=== PATIENT | female | born 1930 | race Caucasian/White ===

== ENCOUNTER → 2016-10-09 | Outpatient (CLI) | payer MEDICARE, OTHER ==
[~2016-10-09] MED LIST: ACET-62 PO; ALEN70TA48; ASPI-557 PO; CALC-969 PO; FISH1CAP59 PO; GLIM2TAB3 PO; INSU100I4 SQ; LEVO75TA10; MV-M1TAB38 PO; OMEP20CA10; SAXA5TAB; SERT50TA12; SIMV40TA5 PO
== END ==
LOC: WC.BC 10:35
DX: Z12.31 Encounter for screening mammogram for malignant neoplasm of breast (principal)
CPT/HCPCS: 77063; G0202

== ENCOUNTER → 2017-06-14 19:00 | Observation (INO) ==
--- OUTSIDE RECORDS SUMMARY | 2017-06-13 14:24 | External Medical Summary | Referral Summary ---
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 Discharge Diagnosis: Back pain Discharge Disposition: 01-Home or Self Care Attending Physician: Ayana Melo MD Admitting Physician: Ayana Melo MD Referring Physician: Dorian Fournier APRN Vital Signs Most recent to oldest [Reference Range]: 1 Peripheral Pulse Rate [60-100 bpm] 56 bpm *LOW* (06/12/16 2:16 PM) Blood Pressure [90-140/60-90 mmHg] 122/56 mmHg (06/12/16 2:16 PM) Problem List Condition Effective Dates Status Health Status Informant Anemia(Confirmed) Resolved Angina(Confirmed) Resolved Anxiety(Confirmed) Resolved Chronic renal failure syndrome Active (disorder)(Confirmed) Generalized osteoarthritis Active (disorder)(Confirmed) Depression(Confirmed) Resolved Diabetes(Confirmed) Resolved Diabetic renal disease Active (disorder)(Confirmed) Essential hypertension Active (disorder)(Confirmed) Hearing loss(Confirmed) Active Hyperlipidemia(Confirmed) Resolved Hypertension(Confirmed) Resolved Hypothyroidism(Confirmed) Resolved Hypothyroidism (disorder)(Confirmed) Active Renal disease(Confirmed) Active Kidney stones(Confirmed) Resolved Osteoarthritis(Confirmed) Resolved Urge incontinence of urine Active (finding)(Confirmed) Allergies, Adverse Reactions, Alerts Substance Reaction Severity Status citalopram Active codeine Active sulfa drugs Active sulfanilamide topical Active Medications Aspir 81 1 tabs, Oral, Daily, 0 Refill(s) Start Date: 12/21/13 Status: OrderedCalcium 600+D 1 tabs, Oral, Daily, 0 Refill(s) Start Date: 02/16/14 Status: OrderedFish Oil 1 tabs, Oral, Daily, 0 Refill(s) Start Date: 12/21/13 Status: OrderedFosamax 70 mg oral tablet 70 mg 1 tabs, Oral, qWeek, # 13 tabs, 3 Refill(s), Pharmacy: [facility] # [id number], 1 tabs Oral qWeek Start Date: 03/14/15 Status: OrderedGentle Laxative 5 mg oral delayed release tablet mg tabs, Oral, Daily, mix with a glass a water, 0 Refill(s) Start Date: 11/09/14 Status: Orderedglimepiride 2 mg oral tablet 2 mg 1 tabs, Oral, BID, take 2 in am and 1 in pm, # 180 tabs, 2 Refill(s), Pharmacy: [facility] #[id number], PLEASE NOTE PT. IS TO TAKE TABLET BID., 1 tabs Oral BID Start Date: 09/13/14 Status: Orderedglucose 4 tabs, Oral, Once, PRN, 0 Refill(s) Start Date: 11/09/14 Status: OrderedLevemir 100 units/mL subcutaneous solution 3 units, SubCutaneous, Daily, 0 Refill(s) Start Date: 12/21/13 Status: OrderedOcuvite 1 tabs, Oral, Daily, 0 Refill(s) Start Date: 12/21/13 Status: Orderedomeprazole 20 mg oral delayed release capsule See Instructions, TAKE ONE CAPSULE BY MOUTH DAILY, # 90 caps, eRx: [facility] #[id number], TAKE ONE CAPSULE BY MOUTH DAILY Start Date: 03/12/16 Status: OrderedOnglyza 5 mg oral tablet See Instructions, TAKE ONE TABLET BY MOUTH DAILY, # 90 tabs, eRx: [facility] #[id number], TAKE ONETABLET BY MOUTH DAILY Start Date: 05/07/16 Status: Orderedsertraline 50 mg oral tablet See Instructions, TAKE ONE TABLET BY MOUTH DAILY, # 30 tabs, 3 Refill(s), eRx: [facility] #[id number], TAKE ONE TABLET BY MOUTH DAILY Start Date: 04/02/16 Status: Orderedsimvastatin 40 mg oral tablet See Instructions, TAKE ONE-HALF TABLET BY MOUTH DAILY - NEEDS LABS DONE., # 45 tabs, 3 Refill(s), eRx: [facility] #[id number], TAKE ONE-HALF TABLET BY MOUTH DAILY - NEEDS LABS DONE. Start Date: 02/20/16 Status: OrderedSynthroid 75 mcg (0.075 mg) oral tablet See Instructions, TAKE ONE TABLET BY MOUTH EVERY DAY, # 90 tabs, eRx: [facility] #[id number], TAKEONE TABLET BY MOUTH EVERY DAY Start Date: 06/09/15 Status: OrderedTylenol Caplet 325 mg oral tablet 1 tabs, Oral, q4hr, as needed for pain, 0 Refill(s) Start Date: 12/21/13 Status: OrderedVitamin C 500 mg, Oral, Daily, 0 Refill(s) Start Date: 12/28/13 Status: Ordered Results No data available for this section Immunizations Given and Recorded Vaccine Date Status Refusal Reason tetanus/diphth/pertuss (Tdap) adult/adol 01/04/04 Recorded influenza virus vaccine, inactivated 03/20/16 Given influenza virus vaccine, live 03/16/13 Given influenza virus vaccine, live 03/06/12 Given tetanus-diphth toxoids (Td) adult/adol 01/04/04 Given zoster vaccine live 07/15/08 Given Procedures Procedure Date Related Diagnosis Body Site Mammogram 09/07/15 Bone densimetry normal 07/27/14 Vaginal Pap smear 01/04/04 Colonoscopy 04/10/01 H/O tubal ligation 1964 in childbirth S/P wrist surgery Social History Social History Type Response Smoking Status Never smoker Assessment and Plan No data available for this section
--- OUTSIDE RECORDS SUMMARY | 2017-06-13 14:24 | External Medical Summary | Referral Summary ---
:1930 Author Organization [facility] Address [address] [place] [address] [place] [phone] Care Team Providers Name Role Phone Jessica Boone Primary Care Physician Encounter VC Date(s): 11/09/14 - 11/09/14 [facility] [address] [place] [address] [place] [phone]- Discharge Diagnosis: Renal disease Discharge Diagnosis: Dyslipidemia Discharge Diagnosis: Chest pain Discharge Diagnosis: Diabetes Discharge Diagnosis: Hypertension Discharge Disposition: 01-Home or Self Care Attending Physician: Easton Wilson MD Admitting Physician: Easton Wilson MD Referring Physician: Karen Carrington MD Vital Signs Most recent to oldest [Reference Range]: 1 Peripheral Pulse Rate [60-100 bpm] 84 bpm (11/09/14 9:00 AM) Blood Pressure [90-140/60-90 mmHg] 102/68 mmHg (11/09/14 9:00 AM) Problem List Condition Effective Dates Status Health [...] Daily, 0 Refill(s) Start Date: 12/21/13 Status: Orderedfolic acid 1 mg oral tablet 1 tabs, Oral, Daily, # 30 tabs, 5 Refill(s), Pharmacy: [facility] #[id number] , 1 tabs Oral Daily Start Date: 01/26/14 Status: OrderedFosamax 70 mg oral tablet 70 mg 1 tabs, Oral, qWeek, # 13 tabs, 3 Refill(s), Pharmacy: [facility] # [id number], 1 tabs Oral qWeek Start Date: 03/14/15 Status: OrderedGentle Laxative 5 mg oral delayed release tablet mg tabs, Oral, Daily, mix with a glass a water, 0 Refill(s) Start Date: 11/09/14 Status: Orderedglimepiride 2 mg oral tablet 1 tabs, Oral, BID, # 180 tabs, 2 Refill(s), Pharmacy: [facility] #[id number], PLEASE NOTE PT. IS TO TAKE TABLET [...] See Instructions, TAKE ONE CAPSULE BY MOUTH ONCE A DAY, # 90 caps, 2 Refill(s), Pharmacy: [facility] #[id number], TAKE ONE CAPSULE BY MOUTH ONCE A DAY Start Date: 09/13/14 Status: OrderedOnglyza 5 mg oral tablet See Instructions, TAKE ONE TABLET BY MOUTH EVERY DAY, # 90 tabs, 2 Refill(s), Pharmacy: [facility] #[id number], TAKE ONE TABLET BY MOUTH EVERY DAY Start Date: 09/13/14 Status: Orderedsertraline 25 mg oral tablet See Instructions, TAKE ONE TABLET BY MOUTH EVERY DAY, # 90 tabs, 1 Refill(s), eRx: [facility] #[id number], TAKE ONE TABLET BY MOUTH EVERY DAY Start Date: 03/16/15 Status: OrderedSynthroid 75 mcg (0.075 mg) oral tablet See Instructions, TAKE ONE TABLET BY MOUTH EVERY DAY, # 90 tabs, 1 Refill(s), eRx: [facility] #[id number], TAKE ONE TABLET BY MOUTH EVERY DAY Start Date: 12/10/14 Status: OrderedTylenol Caplet 325 mg oral tablet 1 tabs, Oral, q4hr, as needed for pain, 0 Refill(s) Start Date: 12/21/13 Status: OrderedVitamin C 500 mg, Oral, Daily, 0 Refill(s) Start Date: 12/28/13 Status: OrderedZocor 40 mg oral tablet See Instructions, TAKE ONE-HALF TABLET BY MOUTH EVERY DAY, # 45 tabs, 2 Refill(s ), Pharmacy: [facility] #[id number], TAKE ONE-HALF TABLET BY MOUTH EVERY DAY Start Date: 09/13/14 Status: Ordered Results No data available for this section Immunizations Vaccine Date Refusal Reason tetanus/diphth/pertuss (Tdap) adult/adol 01/04/04 influenza virus vaccine, live 03/16/13 influenza virus vaccine, live 03/06/12 tetanus-diphth toxoids (Td) adult/adol 01/04/04 zoster vaccine live 07/15/08 Procedures Procedure Date Related Diagnosis Body Site Colonoscopy 2004 H/O tubal ligation 1964 in childbirth S/P wrist surgery Social History Social History Type Response Smoking Status Never smoker Assessment and Plan Extracted from: Title: Ambulatory Patient Education Author: Easton Wilson MD Date: 11/09/14 Family Medicine Coronary Artery Disease, Risk Factors Research has shown that the risk of developing coronary artery disease (CAD) and having a heart attack increases with each factor you have. RISK FACTORS YOU CANNOT CHANGE Your age. Your risk goes up as you get older. Most heart attacks happen to people over the age of 65. Gender. Men have a greater risk of heart attack than women, and they have attacks earlier in life. However, women are more likely to from a heart attack. Heredity. Children of parents with heart disease are more likely to develop it themselves. Race. Americans and other ethnic groups have a higher risk, possibly because of high blood pressure, a tendency toward obesity, and diabetes. Your family. Most people with a strong family history of heart disease have one or more other risk factors. RISK FACTORS YOU CAN CHANGE Exposure to tobacco smoke. Even secondhand smoke greatly increases the risk for heart disease. High blood cholesterol may be lowered with changes in diet, activity, and medicines. High blood pressure makes the heart work harder. This causes the heart muscles to become thick and, eventually, weaker. It also increases your risk of stroke, heart attack, and kidney or heart failure. Physical inactivity is a risk factor for CAD. Regular physical activity helps prevent heart and blood vessel disease. Exercise helps control blood cholesterol, diabetes, obesity, and it may help lower blood pressure in some people. Excess body fat, especially belly fat, increases the risk of heart disease and stroke even if there are no other risk factors. Excess weight increases the heart's workload and raises blood pressure and blood cholesterol. Diabetes seriously increases your risk of developing CAD. If you have diabetes, you should work with your caregiver to manage it and control other risk factors. OTHER RISK FACTORS FOR CAD How you respond to stress. Drinking too much alcohol may raise blood pressure, cause heart failure, and lead to stroke. Total cholesterol greater than 200 milligrams. HDL (good) cholesterol less than 40 milligrams. HDL helps keep cholesterol from building up in the toro of the arteries. PREVENTING CAD Maintain a healthy weight. Exercise or do physical activity. Eat a heart-healthy diet low in fat and salt and high in fiber. Control your blood pressure to keep it below 120 over 80. Keep your cholesterol at a level that lowers your risk. Manage diabetes if you have it. Stop smoking. Learn how to manage stress. HEART SMART SUBSTITUTIONS Instead of whole or 2% milk and cream, use skim milk. Instead of fried foods, eat baked, steamed, boiled, broiled, or microwaved foods. Instead of lard, butter, palm and coconut oils, cook with unsaturated vegetable oils, such as corn, olive, canola, safflower, sesame, soybean, sunflower, or peanut. Instead of fatty cuts of meat, eat lean cuts of meat or cut off the fatty parts. Instead of 1 whole egg in recipes, use 2 egg whites. Instead of sauces, butter, and salt, season vegetables with herbs and spices. Instead of regular hard and processed cheeses, eat low-fat, low-sodium cheeses. Instead of salted potato chips, choose low-fat, unsalted tortilla and potato chips and unsalted pretzels and popcorn. Instead of sour cream and mayonnaise, use plain low-fat yogurt, low-fat cottage cheese, or low-fat or "light" sour cream. FOR MORE INFORMATION National Heart Lung and Blood [place]: www.nhlbi.nih.gov/health/hearttruth [place] [employer]: www.heart.org/HEARTORG Document Released: 08/09/2004 Document Revised: 08/11/2012 Document Reviewed: 08/04/2008 ExitCare Patient Information 2014 [facility]. No follow up information was provided. Extracted from: Title: Office Visit Note Author: Easton Wilson MD Date: 11/09/14 Assessment/Plan 1.Chest pain Chronic chest pain, likely musculoskeletal, with pleuritic component in the past.No recent sxs. If CP worsen in frequency, intensity or change in character, patient will contact me. 2.Dyslipidemia Encouraged healthy eating. Discussed consistent exercise , milly to boost HDL. Cont zocor for now. 3.Hypertension Blood pressure on the low side of normal. Encouraged drinking 60oz water per day. Low salt diet encouraged 4.Renal disease Followed by Dr. Wilder. 5.Diabetes Managed by Dr. Zamarripa. Encouraged exercise and healthy eating. Referrals to Other Providers Referred by: Easton Wilson MD
--- OUTSIDE RECORDS SUMMARY | 2017-06-13 14:24 | External Medical Summary | Referral Summary ---
:1930 Author Organization [facility] Address [address] [place] [address] [place] [phone] Care Team Providers Name Role Phone Jessica Boone Primary Care Physician Encounter VC Date(s): 11/09/14 - 11/09/14 [facility] [address] [place] [address] [place] [phone]- Discharge Diagnosis: Renal disease Discharge Diagnosis: Dyslipidemia [...] Daily, # 30 tabs, 5 Refill(s), Pharmacy: [facility] #[id number] , 1 tabs Oral Daily Start Date: 01/26/14 Status: OrderedFosamax 70 mg oral tablet 70 mg 1 tabs, Oral, qWeek, # 13 tabs, 3 Refill(s), Pharmacy: [facility] # [id number], 1 tabs Oral qWeek Start Date: 03/14/15 Status: OrderedGentle Laxative 5 mg oral delayed release tablet mg tabs, Oral, Daily, mix with a glass a water, 0 Refill(s) Start Date: 11/09/14 Status: Orderedglimepiride 2 mg oral tablet 1 tabs, Oral, BID, # 180 tabs, 2 Refill(s), Pharmacy: [facility] #[id number], PLEASE NOTE PT. IS TO TAKE TABLET [...] DAY, # 90 caps, 2 Refill(s), Pharmacy: [facility] #[id number], TAKE ONE CAPSULE BY MOUTH ONCE A DAY Start Date: 09/13/14 Status: OrderedOnglyza 5 mg oral tablet See Instructions, TAKE ONE TABLET BY MOUTH EVERY DAY, # 90 tabs, 2 Refill(s), Pharmacy: [facility] #[id number], TAKE ONE TABLET BY MOUTH EVERY DAY Start Date: 09/13/14 Status: Orderedsertraline 25 mg oral tablet See Instructions, TAKE ONE TABLET BY MOUTH EVERY DAY, # 90 tabs, 1 Refill(s), eRx: [facility] #[id number], TAKE ONE TABLET BY MOUTH EVERY DAY Start Date: 03/16/15 Status: OrderedSynthroid 75 mcg (0.075 mg) oral tablet See Instructions, TAKE ONE TABLET BY MOUTH EVERY DAY, # 90 tabs, 1 Refill(s), eRx: [facility] #[id number], TAKE ONE TABLET BY MOUTH EVERY DAY [...] # 45 tabs, 2 Refill(s ), Pharmacy: [facility] #[id number], TAKE ONE-HALF TABLET BY MOUTH EVERY DAY [...] MORE INFORMATION National Heart Lung and Blood [place]: www.nhlbi.nih.gov/health/hearttruth [place] [employer]: www.heart.org/HEARTORG Document Released: 08/09/2004 Document Revised: 08/11/2012 Document Reviewed: 08/04/2008 ExitCare Patient Information 2014 [employer]. No follow up information was provided. Extracted [...]
--- OUTSIDE RECORDS SUMMARY | 2017-06-13 14:24 | External Medical Summary | Referral Summary ---
:1930 Author Organization [facility] Address [address] [place] [address] [place] [phone] Care Team Providers Name Role Phone Jessica Boone Primary Care Physician Encounter VC Date(s): 03/30/16 - 03/30/16 [facility] [place] [phone] [place] Discharge Disposition: 01-Home or Self Care Attending Physician: Dorian Fournier APRN Admitting Physician: Dorian Fournier APRN Vital Signs Most recent to oldest [Reference Range]: 1 Temperature Tympanic [36.6-38.1 degC] 36.6 degC (03/30/16 8:22 AM) Peripheral Pulse Rate [60-100 bpm] 63 bpm (03/30/16 8:22 AM) Respiratory Rate [14-20 br/min] 15 br/min (03/30/16 8:22 AM) Blood Pressure [90-140/60-90 mmHg] 118/60 mmHg (03/30/16 8:22 AM) SpO2 95 % (03/30/16 8:22 AM) Problem List Condition Effective Dates Status [...] # 13 tabs, 3 Refill(s), Pharmacy: [facility] # [id number], 1 tabs Oral qWeek Start Date: 03/14/15 Status: OrderedGentle Laxative 5 mg oral delayed release tablet mg tabs, Oral, Daily, mix with a glass a water, 0 Refill(s) Start Date: 11/09/14 Status: Orderedglimepiride 2 mg oral tablet 2 mg 1 tabs, Oral, BID, take 2 in am and 1 in pm, # 180 tabs, 2 Refill(s), Pharmacy: [facility] #[id number], PLEASE NOTE PT. IS TO TAKE TABLET [...] BY MOUTH DAILY, # 90 caps, eRx: [facility] #[id number], TAKE ONE CAPSULE BY MOUTH DAILY Start Date: 03/12/16 Status: OrderedOnglyza 5 mg oral tablet See Instructions, TAKE ONE TABLET BY MOUTH DAILY, # 90 tabs, 1 Refill(s), eRx: [facility] #[id number], TAKE ONE TABLET BY MOUTH DAILY Start Date: 10/28/15 Status: Orderedsertraline 50 mg oral tablet 50 mg 1 tabs, Oral, Daily, # 30 tabs, 3 Refill(s), Pharmacy: [facility] # [id number], 1 tabs Oral Daily Start Date: 12/08/15 Status: Orderedsimvastatin 40 mg oral tablet See Instructions, TAKE ONE-HALF TABLET BY MOUTH DAILY - NEEDS LABS DONE., # 45 tabs, 3 Refill(s), eRx: [facility] #[id number], TAKE ONE-HALF TABLET BY MOUTH DAILY - NEEDS LABS DONE. Start Date: 02/20/16 Status: OrderedSynthroid 75 mcg (0.075 mg) oral tablet See Instructions, TAKE ONE TABLET BY MOUTH EVERY DAY, # 90 tabs, eRx: [facility] #[id number], TAKEONE TABLET BY MOUTH EVERY DAY Start Date: 06/09/15 Status: OrderedTylenol Caplet 325 mg oral tablet 1 tabs, Oral, q4hr, as needed for pain, 0 Refill(s) Start Date: 12/21/13 Status: OrderedVitamin C 500 mg, Oral, Daily, 0 Refill(s) Start Date: 12/28/13 Status: Ordered Results Chemistry Most recent to oldest [Reference Range]: 1 Sodium Lvl [135-144 mEq/L] 141 mEq/L (03/30/16 9:15 AM) Potassium Lvl [3.5-5.2 mEq/L] 4.4 mEq/L (03/30/16 9:15 AM) Chloride [99-111 mEq/L] 106 mEq/L (03/30/16 9:15 AM) CO2 [22-31 mEq/L] 26 mEq/L (03/30/16 9:15 AM) AGAP [3-20] 9 (03/30/16 9:15 AM) BUN [10-20 mg/dL] 27 mg/dL *HI* (03/30/16 9:15 AM) Glucose Lvl [70-99 mg/dL] 226 mg/dL *HI* (03/30/16 9:15 AM) Creatinine Lvl [0.57-1.11 mg/dL] 1.44 mg/dL *HI* (03/30/16 9:15 AM) eGFR [>60 mL/min] 34 mL/min 1 *ABN* (03/30/16 9:15 AM) Calcium Lvl [8.9-10.5 mg/dL] 8.7 mg/dL *LOW* (03/30/16 9:15 AM) 1Result Comment: Multiply eGFR results by 1.21 for race.Urinalysis Most recent to oldest [Reference Range]: 1 UA Color Yellow (03/30/16 2:45 PM) UA Appear Clear (03/30/16 2:45 PM) UA pH [5.0-8.0] 6.5 (03/30/16 2:45 PM) UA Leuk Est [Negative] Pos 2+ *ABN* (03/30/16 2:45 PM) UA Nitrite [Negative] Negative (03/30/16 2:45 PM) UA Protein [Negative] Negative (03/30/16 2:45 PM) UA Glucose [Negative] Negative (03/30/16 2:45 PM) UA Ketones [Negative] Negative (03/30/16 2:45 PM) UA Urobilinogen [<1.0 mg/dL] 0.2 mg/dL (03/30/16 2:45 PM) UA Bili [Negative] Negative (03/30/16 2:45 PM) UA Blood [Negative] Negative (03/30/16 2:45 PM) UA Spec Grav [1.003-1.030] 1.009 (03/30/16 2:45 PM) Type Clean Catch (03/30/16 2:45 PM) UA WBC [0-4] 2-4 (03/30/16 2:45 PM) UA RBC [0-4] 0-4 (03/30/16 2:45 PM) Epithelial Cells 0-2 (03/30/16 2:45 PM) Immunizations Vaccine Date Refusal Reason tetanus/diphth/pertuss (Tdap) adult/adol 01/04/04 influenza virus vaccine, inactivated 03/20/16 influenza virus vaccine, live 03/16/13 influenza virus [...]
--- OUTSIDE RECORDS SUMMARY | 2017-06-13 14:24 | External Medical Summary | Referral Summary ---
:1930 Author Organization [facility] Address [address] [place] [address] [place] [phone] Care Team Providers Name Role Phone Jessica Boone Primary Care Physician Encounter VC Date(s): 11/09/14 - 11/09/14 [facility] [address] [place] [address] [place] [phone] Discharge Diagnosis: Renal disease Discharge Diagnosis: Dyslipidemia [...] Daily, # 30 tabs, 5 Refill(s), Pharmacy: [facility] #[id number] , 1 tabs Oral Daily Start Date: 01/26/14 Status: OrderedFosamax 70 mg oral tablet 70 mg 1 tabs, Oral, qWeek, # 13 tabs, 3 Refill(s), Pharmacy: [facility] # [id number], 1 tabs Oral qWeek Start Date: 03/14/15 Status: OrderedGentle Laxative 5 mg oral delayed release tablet mg tabs, Oral, Daily, mix with a glass a water, 0 Refill(s) Start Date: 11/09/14 Status: Orderedglimepiride 2 mg oral tablet 1 tabs, Oral, BID, # 180 tabs, 2 Refill(s), Pharmacy: [facility] #[id number], PLEASE NOTE PT. IS TO TAKE TABLET [...] DAY, # 90 caps, 2 Refill(s), Pharmacy: [facility] #[id number], TAKE ONE CAPSULE BY MOUTH ONCE A DAY Start Date: 09/13/14 Status: OrderedOnglyza 5 mg oral tablet See Instructions, TAKE ONE TABLET BY MOUTH EVERY DAY, # 90 tabs, 2 Refill(s), Pharmacy: [facility] #[id number], TAKE ONE TABLET BY MOUTH EVERY DAY Start Date: 09/13/14 Status: Orderedsertraline 25 mg oral tablet See Instructions, TAKE ONE TABLET BY MOUTH EVERY DAY, # 90 tabs, 1 Refill(s), eRx: [facility] #[id number], TAKE ONE TABLET BY MOUTH EVERY DAY Start Date: 03/16/15 Status: OrderedSynthroid 75 mcg (0.075 mg) oral tablet See Instructions, TAKE ONE TABLET BY MOUTH EVERY DAY, # 90 tabs, 1 Refill(s), eRx: [facility] #[id number], TAKE ONE TABLET BY MOUTH EVERY DAY [...] # 45 tabs, 2 Refill(s ), Pharmacy: [facility] #[id number], TAKE ONE-HALF TABLET BY MOUTH EVERY DAY [...] MORE INFORMATION National Heart Lung and Blood [place]: www.nhlbi.nih.gov/health/hearttruth [employer] [employer]: www.heart.org/HEARTORG Document Released: 08/09/2004 Document Revised: 08/11/2012 Document Reviewed: 08/04/2008 ExitCare Patient Information 2014 [place]. No follow up information was provided. Extracted [...]
--- OUTSIDE RECORDS SUMMARY | 2017-06-13 14:24 | External Medical Summary | Referral Summary ---
:1930 Author [facility] Address [address] [place] [address] [place] [phone] Care Team Providers Name Role Phone Jessica Boone Primary Care Physician Encounter VC Date(s): 09/13/15 - 09/13/15 [facility] [place] [phone] Discharge Diagnosis: Hypothyroidism (disorder) Discharge Diagnosis: Hyperlipidemia Discharge Diagnosis: Diabetic renal disease (disorder) Discharge Diagnosis: Diabetes Discharge Diagnosis: Otalgia, right ear Discharge Disposition: 01-Home or Self Care Attending Physician: Jessica Boone DO Admitting Physician: Jessica Boone DO Vital Signs Most recent to oldest [Reference Range]: 1 Peripheral Pulse Rate [60-100 bpm] 80 bpm (09/13/15 8:46 AM) Respiratory Rate [14-20 br/min] 18 br/min (09/13/15 8:46 AM) Blood Pressure [90-140/60-90 mmHg] 138/72 mmHg (09/13/15 8:46 AM) SpO2 96 % (09/13/15 8:46 AM) Problem List Condition Effective Dates Status [...] qWeek, # 13 tabs, 3 Refill(s), Pharmacy: [facility] # [id number], 1 tabs Oral qWeek Start Date: 03/14/15 Status: OrderedGentle Laxative 5 mg oral delayed release tablet mg tabs, Oral, Daily, mix with a glass a water, 0 Refill(s) Start Date: 11/09/14 Status: Orderedglimepiride 2 mg oral tablet 1 tabs, Oral, BID, # 180 tabs, 2 Refill(s), Pharmacy: [facility] #[id number], PLEASE NOTE PT. IS TO TAKE TABLET [...] MOUTH ONCE A DAY, # 90 caps, 0 Refill(s), Pharmacy: [facility] #[id number], TAKE ONE CAPSULE BY MOUTH ONCE A DAY Start Date: 06/23/15 Status: OrderedOnglyza 5 mg oral tablet See Instructions, TAKE ONE TABLET BY MOUTH EVERY DAY, # 90 tabs, 0 Refill(s), Pharmacy: [facility] #[id number], TAKE ONE TABLET BY MOUTH EVERY DAY Start Date: 08/01/15 Status: Orderedsertraline 50 mg oral tablet 50 mg 1 tabs, Oral, Daily, # 30 tabs, 0 Refill(s) Start Date: 09/13/15 Status: OrderedSynthroid 75 mcg (0.075 mg) oral tablet See Instructions, TAKE ONE TABLET BY MOUTH EVERY DAY, # 90 tabs, eRx: [facility] #[id number], TAKEONE TABLET BY MOUTH EVERY DAY Start Date: 06/09/15 Status: OrderedTylenol Caplet 325 mg oral tablet 1 tabs, Oral, q4hr, as needed for pain, 0 Refill(s) Start Date: 12/21/13 Status: OrderedVitamin C 500 mg, Oral, Daily, 0 Refill(s) Start Date: 12/28/13 Status: OrderedZocor 40 mg oral tablet See Instructions, TAKE ONE-HALF TABLET BY MOUTH EVERY DAY, # 45 tabs, 1 Refill(s ), Pharmacy: [facility] #[id number], Please inform patient she needs to get labs done., TAKE ONE-HALF TABLET BY MOUTH EVERY DAY Start Date: 08/23/15 Status: Ordered Results No data available for this section Immunizations Vaccine Date Refusal Reason tetanus/diphth/pertuss (Tdap) adult/adol 01/04/04 influenza virus vaccine, live 03/16/13 influenza virus vaccine, live 03/06/12 tetanus-diphth toxoids (Td) adult/adol 01/04/04 zoster vaccine live 07/15/08 Procedures Procedure Date Related Diagnosis Body Site Mammogram 09/07/15 Colonoscopy 2004 H/O tubal ligation 1964 in childbirth S/P wrist surgery Social History Social History Type Response Smoking Status Never smoker Assessment and Plan Extracted from: Title: Office Visit Note Author: Jessica Boone DO Date: 09/13/15 Assessment/Plan Diabetes We discussed foot care extensively. She should go back to podiatry to have her toenail taken care of. All questions were answered. She will plan to discuss her food log with Dr. Laura aquino in a few weeks. She would like me to do lab work for her. Ordered: Hemoglobin A1c Office Visit Level 4 Est 89315 Diabetic renal disease (disorder) Continue as per nephrology. Hyperlipidemia Patient is due for CMP and FLP which we will get when she is fasting in a few days. Continue statin medication at this time. Ordered: Comprehensive Metabolic Panel Lipid Panel Office Visit Level 4 Est 00418 Hypothyroidism (disorder) Continue as per Dr. Zamarripa. We discussed the appropriate way to take levothyroxine today. Ordered: Office Visit Level 4 Est 21314 Otalgia, right ear Discussed that this is likely due to her hearing aid. There are no signs of infection orother problems within her external auditory canal on the right. If this does not reso lveafter she gets a new hearing aid in a few weeks and she should return to clinic for further evaluation. Ordered: Office Visit Level 4 Est 93527
--- OUTSIDE RECORDS SUMMARY | 2017-06-13 14:24 | External Medical Summary | Referral Summary ---
:1930 Author Organization [facility] Address [address] [place] [address] [place] [phone] Care Team Providers Name Role Phone Jessica Boone Primary Care Physician Encounter VC Date(s): 11/09/14 - 11/09/14 [facility] [address] [place] [address] [place] [phone]- Discharge Diagnosis: Renal disease Discharge Diagnosis: Dyslipidemia [...] # 30 tabs, 5 Refill(s), Pharmacy: [facility] #[id number] , 1 tabs Oral Daily Start Date: 01/26/14 Status: OrderedFosamax 70 mg oral tablet 70 mg 1 tabs, Oral, qWeek, # 13 tabs, 3 Refill(s), Pharmacy: [facility] # [id number], 1 tabs Oral qWeek Start Date: 03/14/15 Status: OrderedGentle Laxative 5 mg oral delayed release tablet mg tabs, Oral, Daily, mix with a glass a water, 0 Refill(s) Start Date: 11/09/14 Status: Orderedglimepiride 2 mg oral tablet 1 tabs, Oral, BID, # 180 tabs, 2 Refill(s), Pharmacy: [facility] #[id number], PLEASE NOTE PT. IS TO TAKE TABLET [...] # 90 caps, 2 Refill(s), Pharmacy: [facility] #[id number], TAKE ONE CAPSULE BY MOUTH ONCE A DAY Start Date: 09/13/14 Status: OrderedOnglyza 5 mg oral tablet See Instructions, TAKE ONE TABLET BY MOUTH EVERY DAY, # 90 tabs, 2 Refill(s), Pharmacy: [facility] #[id number], TAKE ONE TABLET BY MOUTH EVERY DAY Start Date: 09/13/14 Status: Orderedsertraline 25 mg oral tablet See Instructions, TAKE ONE TABLET BY MOUTH EVERY DAY, # 90 tabs, 1 Refill(s), eRx: [facility] #[id number], TAKE ONE TABLET BY MOUTH EVERY DAY Start Date: 03/16/15 Status: OrderedSynthroid 75 mcg (0.075 mg) oral tablet See Instructions, TAKE ONE TABLET BY MOUTH EVERY DAY, # 90 tabs, 1 Refill(s), eRx: [facility] #[id number], TAKE ONE TABLET BY MOUTH EVERY DAY [...] # 45 tabs, 2 Refill(s ), Pharmacy: [facility] #[id number], TAKE ONE-HALF TABLET BY MOUTH EVERY DAY [...] MORE INFORMATION National Heart Lung and Blood [place]: www.nhlbi.nih.gov/health/hearttruth [place] [employer]: www.heart.org/HEARTORG Document Released: 08/09/2004 Document Revised: 08/11/2012 Document Reviewed: 08/04/2008 ExitCare Patient Information 2014 [employer] No follow up information was provided. Extracted [...]
--- OUTSIDE RECORDS SUMMARY | 2017-06-13 14:24 | External Medical Summary | Referral Summary ---
:1930 Author Organization [facility] Address [address] [place] [address] [place] [phone] Care Team Providers Name Role Phone Jessica Boone Primary Care Physician Encounter VC Date(s): 11/09/14 - 11/09/14 [facility] [address] [place] [address] [place] [phone]- Discharge Diagnosis: Renal disease Discharge Diagnosis: Dyslipidemia [...] Daily, # 30 tabs, 5 Refill(s), Pharmacy: [facility] #[id number] , 1 tabs Oral Daily Start Date: 01/26/14 Status: OrderedFosamax 70 mg oral tablet 70 mg 1 tabs, Oral, qWeek, # 13 tabs, 3 Refill(s), Pharmacy: [facility] # [id number], 1 tabs Oral qWeek Start Date: 03/14/15 Status: OrderedGentle Laxative 5 mg oral delayed release tablet mg tabs, Oral, Daily, mix with a glass a water, 0 Refill(s) Start Date: 11/09/14 Status: Orderedglimepiride 2 mg oral tablet 1 tabs, Oral, BID, # 180 tabs, 2 Refill(s), Pharmacy: [facility] #[id number], PLEASE NOTE PT. IS TO TAKE TABLET [...] DAY, # 90 caps, 2 Refill(s), Pharmacy: [facility] #[id number], TAKE ONE CAPSULE BY MOUTH ONCE A DAY Start Date: 09/13/14 Status: OrderedOnglyza 5 mg oral tablet See Instructions, TAKE ONE TABLET BY MOUTH EVERY DAY, # 90 tabs, 2 Refill(s), Pharmacy: [facility] #[id number], TAKE ONE TABLET BY MOUTH EVERY DAY Start Date: 09/13/14 Status: Orderedsertraline 25 mg oral tablet See Instructions, TAKE ONE TABLET BY MOUTH EVERY DAY, # 90 tabs, 1 Refill(s), eRx: [facility] #[id number], TAKE ONE TABLET BY MOUTH EVERY DAY Start Date: 03/16/15 Status: OrderedSynthroid 75 mcg (0.075 mg) oral tablet See Instructions, TAKE ONE TABLET BY MOUTH EVERY DAY, # 90 tabs, 1 Refill(s), eRx: [facility] #[id number], TAKE ONE TABLET BY MOUTH EVERY DAY [...] # 45 tabs, 2 Refill(s ), Pharmacy: [facility] #[id number], TAKE ONE-HALF TABLET BY MOUTH EVERY DAY [...] MORE INFORMATION National Heart Lung and Blood [place]: www.nhlbi.nih.gov/health/hearttruth [place] [employer]: www.heart.org/HEARTORG Document Released: 08/09/2004 Document Revised: 08/11/2012 Document Reviewed: 08/04/2008 ExitCare Patient Information 2014 [employer]. No follow up information was provided. Extracted [...]
--- OUTSIDE RECORDS SUMMARY | 2017-06-13 14:24 | External Medical Summary | Referral Summary ---
:1930 Author [facility] Address [address] [place] [address] [place] [phone] Care Team Providers Name Role Phone Jessica Boone Primary Care Physician Encounter VC Date(s): 12/19/15 - 12/19/15 [facility] [place] [phone] [place] Discharge Diagnosis: Benign skin lesion of face Discharge Disposition: 01-Home or Self Care Attending Physician: Jessica Boone DO Admitting Physician: Jessica Boone DO Vital Signs Most recent to oldest [Reference Range]: 1 Peripheral Pulse Rate [60-100 bpm] 79 bpm (12/19/15 2:31 PM) Respiratory Rate [14-20 br/min] 18 br/min (12/19/15 2:31 PM) Blood Pressure [90-140/60-90 mmHg] 118/60 mmHg (12/19/15 2:31 PM) SpO2 95 % (12/19/15 2:31 PM) Problem List Condition Effective Dates Status [...] # 13 tabs, 3 Refill(s), Pharmacy: [facility] # [id number], 1 tabs Oral qWeek Start Date: 03/14/15 Status: OrderedGentle Laxative 5 mg oral delayed release tablet mg tabs, Oral, Daily, mix with a glass a water, 0 Refill(s) Start Date: 11/09/14 Status: Orderedglimepiride 2 mg oral tablet 2 mg 1 tabs, Oral, BID, take 2 in am and 1 in pm, # 180 tabs, 2 Refill(s), Pharmacy: [facility] #[id number], PLEASE NOTE PT. IS TO TAKE TABLET [...] CAPSULE BY MOUTH DAILY, # 90 caps, 1 Refill(s), eRx: [facility] #[id number], TAKE ONE CAPSULE BY MOUTH DAILY Start Date: 09/21/15 Status: OrderedOnglyza 5 mg oral tablet See Instructions, TAKE ONE TABLET BY MOUTH DAILY, # 90 tabs, 1 Refill(s), eRx: [facility] #[id number], TAKE ONE TABLET BY MOUTH DAILY Start Date: 10/28/15 Status: Orderedsertraline 50 mg oral tablet 50 mg 1 tabs, Oral, Daily, # 30 tabs, 3 Refill(s), Pharmacy: [facility] # [id number], 1 tabs Oral Daily Start Date: 12/08/15 Status: OrderedSynthroid 75 mcg (0.075 mg) oral tablet See Instructions, TAKE ONE TABLET BY MOUTH EVERY DAY, # 90 tabs, eRx: [facility] #[id number], TAKEONE TABLET BY MOUTH EVERY DAY Start Date: 06/09/15 Status: OrderedTylenol Caplet 325 mg oral tablet 1 tabs, Oral, q4hr, as needed for pain, 0 Refill(s) Start Date: 12/21/13 Status: OrderedVitamin C 500 mg, Oral, Daily, 0 Refill(s) Start Date: 12/28/13 Status: OrderedZocor 40 mg oral tablet See Instructions, TAKE ONE-HALF TABLET BY MOUTH EVERY DAY, # 45 tabs, 1 Refill(s ), Pharmacy: [facility] #[id number], Please inform patient she needs to get labs done., TAKE ONE-HALF TABLET BY MOUTH EVERY DAY Start Date: 08/23/15 Status: Ordered Results No data available for this section Immunizations Vaccine Date Refusal Reason tetanus/diphth/pertuss (Tdap) adult/adol 01/04/04 influenza virus vaccine, live 03/16/13 influenza virus vaccine, live 03/06/12 tetanus-diphth toxoids (Td) adult/adol 01/04/04 zoster vaccine live 07/15/08 Procedures Procedure Date Related Diagnosis Body Site Destruction (eg, laser surgery, electrosurgery, 12/19/15 cryosurgery, chemosurgery, surgical curettement), of benign lesions other than skin tags or cutaneous vascular proliferative lesions; up to 14 lesions Mammogram 09/07/15 Colonoscopy 2004 H/O tubal ligation 1964 in childbirth S/P wrist surgery Social History Social History Type Response Smoking Status Never smoker Assessment and Plan Extracted from: Title: Cryo Skin Lesion Author: Jessica Boone DO Date: 12/19/15 Assessment/Plan Benign skin lesion of face The above lesions were frozen utilizinga cryo- gun with 3 freeze thaw cyclesafter verbal consent was obtained. The patient tolerated procedure well with no difficulti es. Wound care was discussed. We also discussed that these lesions may need a second treatment and that she should return to clinic if needed. Ordered: Destruction, Of Flat Warts, Molluscum Contagiosum, Or Milia; Up To 14 Lesions [address] Orders: glimepiride, 2 mg 1 tabs, Oral, BID, take 2 in am and 1 in pm, # 180 tabs, 2 Refill(s), Pharmacy: [facility] #[id number], PLEASE NOTE PT. IS TO TAKE TABLET BID., 1 tabs Oral BID
--- OUTSIDE RECORDS SUMMARY | 2017-06-13 14:25 | External Medical Summary | Referral Summary ---
:1930 Author Care Team Providers Name Role Phone Karen Carrington Primary Care Physician Encounter VC Date(s): 09/13/14 - 09/13/14 [facility] [address] [place] [id number] Discharge Diagnosis: Hearing loss Discharge Diagnosis: Osteoporosis Discharge Diagnosis: OTHER AND UNSPECIFIED HYPERLIPIDEMIA Discharge Diagnosis: T2DM (type 2 diabetes mellitus) Discharge Diagnosis: Hypothyroidism Discharge Diagnosis: Essential hypertension Discharge Diagnosis: Hypothyroidism Discharge Diagnosis: HTN (hypertension) Discharge Disposition: Home or Self Care Attending Physician: Karen Carrington MD Admitting Physician: Karen Carrington MD Vital Signs Most recent to oldest [Reference Range]: 1 Temperature Tympanic [36.6-38.1 degC] 37.2 degC (09/13/14 9:21 AM) Peripheral Pulse Rate [60-100 bpm] 78 bpm (09/13/14 9:21 AM) Blood Pressure [90-140/60-90 mmHg] 118/60 mmHg (09/13/14 9:21 AM) Problem List Condition Effective Dates Status [...] sulfa drugs Active sulfanilamide topical Active Medications ACCU-CHEK LORENA PLUS TEST STRP See Instructions, TEST BLOOD SUGAR ONCE DAILY, DX 250.00, # 100 strip, 4 Refill( s), eRx: [facility] #[id number], TEST BLOOD SUGAR ONCE DAILY, DX 250.00 Special Instructions: TEST BLOOD SUGAR ONCE DAILY, DX 250.00 Start Date: 09/06/14 Status: OrderedAspir 81 1 tabs, Oral, Daily, 0 Refill(s) Start Date: 12/21/13 Status: OrderedCalcium 600+D 1 tabs, Oral, Daily, 0 Refill(s) Start Date: 02/16/14 Status: OrderedFish Oil 1 tabs, Oral, Daily, 0 Refill(s) Start Date: 12/21/13 Status: Orderedfolic acid 1 mg oral tablet 1 tabs, Oral, Daily, # 30 tabs, 5 Refill(s), Pharmacy: [facility] #[id number] , 1 tabs Oral Daily Start Date: 01/26/14 Status: OrderedFosamax 70 mg oral tablet 1 tabs, Oral, qWeek, # 12 tabs, 0 Refill(s), Pharmacy: [facility] #[id number] , 1 tabs Oral qWeek Start Date: 09/13/14 Status: Orderedglimepiride 2 mg oral tablet 1 tabs, Oral, BID, # 180 tabs, 2 Refill(s), Pharmacy: [facility] #[id number], PLEASE NOTE PT. IS TO TAKE TABLET BID., 1 tabs Oral BID Start Date: 09/13/14 Status: OrderedLevemir 100 units/mL subcutaneous solution 3 units, SubCutaneous, Daily, 0 Refill(s) Start Date: 12/21/13 Status: OrderedOcuvite 1 tabs, Oral, Daily, 0 Refill(s) Start Date: 12/21/13 Status: Orderedomeprazole 20 mg oral delayed release capsule See Instructions, TAKE ONE CAPSULE BY MOUTH ONCE A DAY, # 90 caps, 2 Refill(s), Pharmacy: [facility] #[id number], TAKE ONE CAPSULE BY MOUTH ONCE A DAY Special Instructions: TAKE ONE CAPSULE BY MOUTH ONCE A DAY Start Date: 09/13/14 Status: OrderedOnglyza 5 mg oral tablet See Instructions, TAKE ONE TABLET BY MOUTH EVERY DAY, # 90 tabs, 2 Refill(s), Pharmacy: [facility] #[id number], TAKE ONE TABLET BY MOUTH EVERY DAY Special Instructions: TAKE ONE TABLET BY MOUTH EVERY DAY Start Date: 09/13/14 Status: Orderedsertraline 25 mg oral tablet See Instructions, TAKE ONE TABLET BY MOUTH EVERY DAY, # 90 tabs, 2 Refill(s), Pharmacy: [facility] #[id number], TAKE ONE TABLET BY MOUTH EVERY DAY Special Instructions: TAKE ONE TABLET BY MOUTH EVERY DAY Start Date: 09/13/14 Status: OrderedSynthroid 75 mcg (0.075 mg) oral tablet See Instructions, TAKE ONE TABLET BY MOUTH EVERY DAY, # 90 tabs, 2 Refill(s), Pharmacy: [facility] #[id number], TAKE ONE TABLET BY MOUTH EVERY DAY Special Instructions: TAKE ONE TABLET BY MOUTH EVERY DAY Start Date: 09/13/14 Status: OrderedTylenol Caplet 325 mg oral tablet 1 tabs, Oral, q4hr, as needed for pain, 0 Refill(s) Start Date: 12/21/13 Status: OrderedVitamin C 500 mg, Oral, Daily, 0 Refill(s) Start Date: 12/28/13 Status: OrderedZocor 40 mg oral tablet See Instructions, TAKE ONE-HALF TABLET BY MOUTH EVERY DAY, # 45 tabs, 2 Refill(s ), Pharmacy: [facility] #[id number], TAKE ONE-HALF TABLET BY MOUTH EVERY DAY Special Instructions: TAKE ONE-HALF TABLET BY MOUTH EVERY DAY Start Date: 09/13/14 Status: Ordered Results Hematology Most recent to oldest [Reference Range]: 1 WBC [4.8-10.8 K/uL] 5.0 K/uL (09/13/14 10:48 AM) RBC [4.00-5.20 M/uL] 3.75 M/uL *LOW* (09/13/14 10:48 AM) Hgb [12.0-16.0 gm/dL] 11.6 gm/dL *LOW* (09/13/14 10:48 AM) Hct [37.0-47.0 %] 36.3 % *LOW* (09/13/14 10:48 AM) MCV [82.0-99.0 fL] 96.8 fL (09/13/14 10:48 AM) MCH [27.0-32.0 pg] 30.9 pg (09/13/14 10:48 AM) MCHC [32.0-36.0 gm/dL] 32.0 gm/dL (09/13/14 10:48 AM) RDW [11.5-14.5 %] 12.9 % (09/13/14 10:48 AM) Platelet [150-400 K/uL] 216 K/uL (09/13/14 10:48 AM) MPV [8.8-14.8 fL] 10.9 fL (09/13/14 10:48 AM) Immature Granulocytes [0.0-1.0 %] 0.4 % (09/13/14:48 AM) Neutrophils [51-75 %] 60 % (09/13/14:48 AM) Lymphocytes [20-46 %] 24 % (09/13/14:48 AM) Monocytes [4-11 %] 13 % *HI* (09/13/14:48 AM) Eosinophils [0-4 %] 2 % (09/13/14:48 AM) Basophils [0-2 %] 0 % (09/13/14 10:48 AM) Neutro Absolute [1.90-7.00 THOUS] 3.01 THOUS (09/13/14 10:48 AM) Lymph Absolute [0.80-3.30 THOUS] 1.20 THOUS (09/13/14 10:48 AM) [place]anan Absolute [0.30-1.00 THOUS] 0.66 THOUS (09/13/14 10:48 AM) Eos Absolute [0.00-0.50 THOUS] 0.12 THOUS (09/13/14 10:48 AM) Baso Absolute [0.00-0.20 THOUS] 0.01 THOUS (09/13/14 10:48 AM) Chemistry Most recent to oldest [Reference Range]: 1 Sodium Lvl [135-144 mEq/L] 143 mEq/L (09/13/14 10:48 AM) Potassium Lvl [3.5-5.2 mEq/L] 5.0 mEq/L (09/13/14 10:48 AM) Chloride [99-111 mEq/L] 108 mEq/L (09/13/14 10:48 AM) CO2 [22-31 mEq/L] 27 mEq/L (09/13/14 10:48 AM) AGAP [3-20] 8 (09/13/14 10:48 AM) BUN [10-20 mg/dL] 38 mg/dL *HI* (09/13/14 10:48 AM) Glucose Lvl [70-99 mg/dL] 115 mg/dL *HI* (09/13/14 10:48 AM) Creatinine Lvl [0.57-1.11 mg/dL] 1.44 mg/dL *HI* (09/13/14 10:48 AM) eGFR [>60 mL/min] 35 mL/min 1 *ABN* (09/13/14 10:48 AM) Calcium Lvl [8.9-10.5 mg/dL] 9.6 mg/dL (09/13/14 10:48 AM) Albumin Lvl [3.4-4.8 gm/dL] 3.9 gm/dL (09/13/14 10:48 AM) Total Protein [6.2-8.1 gm/dL] 6.3 gm/dL (09/13/14 10:48 AM) Globulin [1.8-4.0 gm/dL] 2.4 gm/dL (09/13/14 10:48 AM) ALT [0-55 unit/L] 29 unit/L (09/13/14 10:48 AM) AST [5-34 unit/L] 25 unit/L (09/13/14 10:48 AM) Alk Phos [40-150 unit/L] 76 unit/L (09/13/14 10:48 AM) Bili Total [0.2-1.2 mg/dL] 0.4 mg/dL (09/13/14 10:48 AM) Bili Direct [0.0-0.5 mg/dL] 0.1 mg/dL (09/13/14 10:48 AM) Bili Indirect [0.0-1.0 mg/dL] 0.3 mg/dL (09/13/14 10:48 AM) Chol [0-199 mg/dL] 141 mg/dL (09/13/14 10:48 AM) Trig [0-149 mg/dL] 71 mg/dL (09/13/14 10:48 AM) HDL [40-84 mg/dL] 35 mg/dL *LOW* (09/13/14 10:48 AM) LDL [0-130 mg/dL] 92 mg/dL (09/13/14 10:48 AM) VLDL Cholesterol [0-28 mg/dL] 14 mg/dL (09/13/14 10:48 AM) Cardiac Risk [0.0-5.0] 4.0 (09/13/14 10:48 AM) TSH [0.35-4.94] 0.64 (09/13/14 10:48 AM) 1Result Comment: Multiply eGFR results by 1.21 for race. Immunizations Vaccine Date Refusal Reason tetanus/diphth/pertuss (Tdap) [...] Extracted from: Title: Ambulatory Patient Education Author: Karen Carrington MD Date: 09/13/14 Family Medicine Osteoporosis Osteoporosis happens when your bones become weak because of bone loss. Weak bones can break (fracture ) more easily with slips or falls. You are more likely to develop osteoporosis if: You are a woman. You are older than 50 years. You are white or . You are very thin. Someone in your family has had osteoporosis. You smoke or use nicotine. CAUSES Smoking. Too much drinking. Being a weight below normal. Not being active. Not going outside in the sun enough. Certain medical conditions, such as diabetes or Crohn disease. Certain medicines, such as steroids or antiseizure medicines. TREATMENT The goal of treatment is to strengthen bones. There are different types of medicines that help your bones. Some medicines make your bones more solid. Some medicines help to slow down how much bone you l ose. Your doctor may check to see if you are getting enough calcium and vitamin D in your diet. PREVENTION Make sure you get enough calcium and vitamin D. Make sure you exercise often. If you smoke, quit. MAKE SURE YOU: Understand these instructions. Will watch your condition. Will get help right away if you are not doing well or get worse. Document Released: 08/11/2012 Document Reviewed: 08/11/2012 ExitCare Patient Information 2014 [facility]. No follow up information was provided. Extracted from: Title: Office Visit Note Author: Karen Carrington MD Date: 09/13/14 Assessment/Plan Essential hypertension Hearing loss Hypothyroidism Osteoporosis Discussed treatment options. Will try fosamax T2DM (type 2 diabetes mellitus) sees Dr. Zamarripa for this. Orders: alendronate, 1 tabs, Oral, qWeek, # 12 tabs, 0 Refill(s), Pharmacy: [facility] #[id number], 1 tabs Oral qWeek glimepiride, 1 tabs, Oral, BID, # 180 tabs, 2 Refill(s), Pharmacy: [facility] #[id number], PLEASE NOTE PT. IS TO TAKE TABLET BID., 1 tabs Oral BID levothyroxine, See Instructions, TAKE ONE TABLET BY MOUTH EVERY DAY, # 90 tabs, 2 Refill(s), Pharmacy: [facility] #[id number], TAKE ONE TABLET BY MOUTH EVERY DAY omeprazole, See Instructions, TAKE ONE CAPSULE BY MOUTH ONCE A DAY, # 90 caps , 2 Refill(s), Pharmacy: [facility] #[id number], TAKE ONE CAPSULE BY MOUTH ONCE A DAY saxagliptin, See Instructions, TAKE ONE TABLET BY MOUTH EVERY DAY, # 90 tabs , 2 Refill(s), Pharmacy: [facility] #[id number], TAKE ONE TABLET BY MOUTH EVERY DAY sertraline, See Instructions, TAKE ONE TABLET BY MOUTH EVERY DAY, # 90 tabs, 2 Refill(s), Pharmacy: [facility] #[id number], TAKE ONE TABLET BY MOUTH EVERY DAY simvastatin, See Instructions, TAKE ONE-HALF TABLET BY MOUTH EVERY DAY, # 45 tabs, 2 Refill(s), Pharmacy: [facility] #[id number], TAKE ONE-HALF TABLET BY MOUTH EVERY DAY CBC w/ Differential Comprehensive Metabolic Panel Hepatic Function Panel Lipid Panel TSH 3rd Generation
--- OUTSIDE RECORDS SUMMARY | 2017-06-13 14:25 | External Medical Summary | Referral Summary ---
:1930 Author Organization [facility] Address [address] [place] [address] [place] [phone] Care Team Providers Name Role Phone Jessica Boone Primary Care Physician Encounter VC Date(s): 09/05/15 - 09/05/15 [facility] [address] [place] [phone] [place] Discharge Diagnosis: Cerumen impaction Discharge Disposition: 01-Home or Self Care Attending Physician: Dorian Fournier APRN Admitting Physician: Dorian Fournier APRN Vital Signs Most recent to oldest [Reference Range]: 1 Peripheral Pulse Rate [60-100 bpm] 88 bpm (09/05/15 9:24 AM) Blood Pressure [90-140/60-90 mmHg] 100/60 mmHg (09/05/15 9:24 AM) SpO2 95 % (09/05/15 9:24 AM) Problem List Condition Effective Dates Status [...] Pharmacy: [facility] #[id number] , 1 tabs Oral Daily Start Date: 01/26/14 Status: OrderedFosamax 70 mg oral tablet 70 mg 1 tabs, Oral, qWeek, # 13 tabs, 3 Refill(s), Pharmacy: [facility] # [id number], 1 tabs Oral qWeek Start Date: 03/14/15 Status: OrderedGentle Laxative 5 mg oral delayed release tablet mg tabs, Oral, Daily, mix with a glass a water, 0 Refill(s) Start Date: 11/09/14 Status: Orderedglimepiride 2 mg oral tablet 1 tabs, Oral, BID, # 180 tabs, 2 Refill(s), Pharmacy: [facility] #[id number], PLEASE NOTE PT. IS TO TAKE TABLET [...] DAY, # 90 caps, 0 Refill(s), Pharmacy: [facility] #[id number], TAKE ONE CAPSULE BY MOUTH ONCE A DAY Start Date: 06/23/15 Status: OrderedOnglyza 5 mg oral tablet See Instructions, TAKE ONE TABLET BY MOUTH EVERY DAY, # 90 tabs, 0 Refill(s), Pharmacy: [facility] #[id number], TAKE ONE TABLET BY MOUTH EVERY DAY Start Date: 08/01/15 Status: Orderedsertraline 25 mg oral tablet See Instructions, TAKE ONE TABLET BY MOUTH EVERY DAY, # 90 tabs, 1 Refill(s), eRx: [facility] #[id number], TAKE ONE TABLET BY MOUTH EVERY DAY Start Date: 03/16/15 Status: OrderedSynthroid 75 mcg (0.075 mg) oral tablet See Instructions, TAKE ONE TABLET BY MOUTH EVERY DAY, # 90 tabs, eRx: [facility] #[id number], TAKEONE TABLET BY MOUTH EVERY DAY Start Date: 06/09/15 Status: OrderedTylenol Caplet 325 mg oral tablet 1 tabs, Oral, q4hr, as needed for pain, 0 Refill(s) Start Date: 12/21/13 Status: OrderedVitamin C 500 mg, Oral, Daily, 0 Refill(s) Start Date: 12/28/13 Status: OrderedZocor 40 mg oral tablet See Instructions, TAKE ONE-HALF TABLET BY MOUTH EVERY DAY, # 45 tabs, 1 Refill(s ), Pharmacy: [facility] #[id number], Please inform patient she needs to get [...] Extracted from: Title: Office Visit Note Author: Dorian Fournier APRN Date: 09/05/15 Assessment/Plan 1.Cerumen impaction Bilateral ear wash was performed in office today. This seems to have removedthe moderate amount of cerumen that was already in her ears. At this time the TM is easily vis ualized I don't think there would be any troublewith her hearing evaluation related to cerumen.
--- OUTSIDE RECORDS SUMMARY | 2017-06-13 14:25 | External Medical Summary | Referral Summary ---
:1930 Author Organization [facility] [place] Address [address] [place] [address] [place] [phone] Care Team Providers Name Role Phone Jessica Boone Primary Care Physician Encounter VC Date(s): 11/09/14 - 11/09/14 [facility] [place] [address] [place] [address] [place] [phone]- Discharge Diagnosis: Renal disease Discharge Diagnosis: Dyslipidemia [...] Daily, # 30 tabs, 5 Refill(s), Pharmacy: [facility] #[id number] , 1 tabs Oral Daily Start Date: 01/26/14 Status: OrderedFosamax 70 mg oral tablet 70 mg 1 tabs, Oral, qWeek, # 13 tabs, 3 Refill(s), Pharmacy: [facility] # [id number], 1 tabs Oral qWeek Start Date: 03/14/15 Status: OrderedGentle Laxative 5 mg oral delayed release tablet mg tabs, Oral, Daily, mix with a glass a water, 0 Refill(s) Start Date: 11/09/14 Status: Orderedglimepiride 2 mg oral tablet 1 tabs, Oral, BID, # 180 tabs, 2 Refill(s), Pharmacy: [facility] #[id number], PLEASE NOTE PT. IS TO TAKE TABLET [...] DAY, # 90 caps, 2 Refill(s), Pharmacy: [facility] #[id number], TAKE ONE CAPSULE BY MOUTH ONCE A DAY Start Date: 09/13/14 Status: OrderedOnglyza 5 mg oral tablet See Instructions, TAKE ONE TABLET BY MOUTH EVERY DAY, # 90 tabs, 2 Refill(s), Pharmacy: [facility] #[id number], TAKE ONE TABLET BY MOUTH EVERY DAY Start Date: 09/13/14 Status: Orderedsertraline 25 mg oral tablet See Instructions, TAKE ONE TABLET BY MOUTH EVERY DAY, # 90 tabs, 1 Refill(s), eRx: [facility] #[id number], TAKE ONE TABLET BY MOUTH EVERY DAY Start Date: 03/16/15 Status: OrderedSynthroid 75 mcg (0.075 mg) oral tablet See Instructions, TAKE ONE TABLET BY MOUTH EVERY DAY, # 90 tabs, 1 Refill(s), eRx: [facility] #[id number], TAKE ONE TABLET BY MOUTH EVERY DAY [...] # 45 tabs, 2 Refill(s ), Pharmacy: [facility] #[id number], TAKE ONE-HALF TABLET BY MOUTH EVERY DAY [...] MORE INFORMATION [employer]: www.nhlbi.nih.gov/health/hearttruth [place] [employer]: www.heart.org/HEARTORG Document Released: 08/09/2004 Document Revised: 08/11/2012 Document Reviewed: 08/04/2008 ExitCare Patient Information 2014 [employer]. No follow up information was provided. Extracted [...]
--- OUTSIDE RECORDS SUMMARY | 2017-06-13 14:25 | External Medical Summary | Continuity of Care Document ---
:1930 Author Organization [facility] Allergies There is no data. Medications There is no data. Problems There is no data. Procedures There is no data. Results There is no data. Encounters ACCT No. Visit Discharge Status Pt. Type Provider Facility Loc./Unit Complaint Date/Time [id number] 08/18/2013 08/18/2013 CLS Outpatient 09:10:00 23:59:59 [id number] 06/29/2013 06/29/2013 CLS Outpatient 08:49:00 23:59:59 [id number] 06/23/2013 06/23/2013 CLS Outpatient 10:15:00 23:59:59 [id number] 05/11/2013 05/11/2013 CLS Outpatient 15:14:00 23:59:59 [id number] 04/28/2013 04/28/2013 CLS Outpatient 10:01:00 23:59:59 [id number] 03/25/2013 03/25/2013 CLS Outpatient 10:16:00 23:59:59
--- OUTSIDE RECORDS SUMMARY | 2017-06-13 14:25 | External Medical Summary | Referral Summary ---
:1930 Author [facility] Address [address] [place] [address] [place] [phone] Care Team Providers Name Role Phone Jessica Boone Primary Care Physician Encounter VC Date(s): 03/14/15 - 03/14/15 [facility] [place] [place] [phone] [place] Discharge Diagnosis: Essential hypertension (disorder) Discharge Diagnosis: Diabetes Discharge Diagnosis: Anxiety Discharge Diagnosis: Hypothyroidism (disorder) Discharge Disposition: 01-Home or Self Care Attending Physician: Jessica Boone DO Admitting Physician: Jessica Boone DO Vital Signs Most recent to oldest [Reference Range]: 1 Temperature Tympanic [36.6-38.1 degC] 36.9 degC (03/14/15 8:31 AM) Peripheral Pulse Rate [60-100 bpm] 88 bpm (03/14/15 8:31 AM) Respiratory Rate [14-20 br/min] 16 br/min (03/14/15 8:31 AM) Blood Pressure [90-140/60-90 mmHg] 110/68 mmHg (03/14/15 8:31 AM) SpO2 94 % (03/14/15 8:31 AM) Problem List Condition Effective Dates Status [...] Daily, # 30 tabs, 5 Refill(s), Pharmacy: [facility] #[id number] , 1 tabs Oral Daily Start Date: 01/26/14 Status: OrderedFosamax 70 mg oral tablet 70 mg 1 tabs, Oral, qWeek, # 13 tabs, 3 Refill(s), Pharmacy: [facility] # [id number], 1 tabs Oral qWeek Start Date: 03/14/15 Status: OrderedGentle Laxative 5 mg oral delayed release tablet mg tabs, Oral, Daily, mix with a glass a water, 0 Refill(s) Start Date: 11/09/14 Status: Orderedglimepiride 2 mg oral tablet 1 tabs, Oral, BID, # 180 tabs, 2 Refill(s), Pharmacy: [facility] #[id number], PLEASE NOTE PT. IS TO TAKE TABLET [...] DAY, # 90 caps, 2 Refill(s), Pharmacy: [facility] #[id number], TAKE ONE CAPSULE BY MOUTH ONCE A DAY Start Date: 09/13/14 Status: OrderedOnglyza 5 mg oral tablet See Instructions, TAKE ONE TABLET BY MOUTH EVERY DAY, # 90 tabs, 2 Refill(s), Pharmacy: [facility] #[id number], TAKE ONE TABLET BY MOUTH EVERY DAY Start Date: 09/13/14 Status: Orderedsertraline 25 mg oral tablet See Instructions, TAKE ONE TABLET BY MOUTH EVERY DAY, # 90 tabs, 2 Refill(s), Pharmacy: [facility] #[id number], TAKE ONE TABLET BY MOUTH EVERY DAY Start Date: 09/13/14 Status: OrderedSynthroid 75 mcg (0.075 mg) oral tablet See Instructions, TAKE ONE TABLET BY MOUTH EVERY DAY, # 90 tabs, 1 Refill(s), eRx: [facility] #[id number], TAKE ONE TABLET BY MOUTH EVERY DAY [...] # 45 tabs, 2 Refill(s ), Pharmacy: [facility] #[id number], TAKE ONE-HALF TABLET BY MOUTH EVERY DAY Start Date: 09/13/14 Status: Ordered Results Chemistry Most recent to oldest [Reference Range]: 1 Sodium Lvl [135-144 mEq/L] 141 mEq/L (03/14/15 12:55 PM) Potassium Lvl [3.5-5.2 mEq/L] 4.7 mEq/L (03/14/15 12:55 PM) Chloride [99-111 mEq/L] 107 mEq/L (03/14/15 12:55 PM) CO2 [22-31 mEq/L] 28 mEq/L (03/14/15 12:55 PM) AGAP [3-20] 6 (03/14/15 12:55 PM) BUN [10-20 mg/dL] 36 mg/dL *HI* (03/14/15 12:55 PM) Glucose Lvl [70-99 mg/dL] 227 mg/dL *HI* (03/14/15 12:55 PM) Creatinine Lvl [0.57-1.11 mg/dL] 1.65 mg/dL *HI* (03/14/15 12:55 PM) eGFR [>60 mL/min] 30 mL/min 1 *ABN* (03/14/15 12:55 PM) Calcium Lvl [8.9-10.5 mg/dL] 9.0 mg/dL (03/14/15 12:55 PM) TSH with Reflex Free T4 [0.35-4.94] 0.48 (03/14/15 12:55 PM) Hgb A1c [4.1-5.6 %] 6.8 % *HI* (03/14/15 12:55 PM) eAvg Glucose 148.5 mg/dL (03/14/15 12:55 PM) 1Result Comment: Multiply eGFR results by 1.21 [...] Extracted from: Title: Ambulatory Patient Education Author: Jessica Boone DO Date: 03/14/15 Family Medicine Diabetes and Foot Care Diabetes may cause you to have problems because of poor blood supply ( circulation) to your feet and legs. This may cause the skin on your feet to become thinner, break easier, and heal more slowly. Your skin may become dry, and the skin may peel and crack. You may also have nerve damage in your legs and feet causing decreased feeling in them. You may not notice minor injuries to your feet that could l ead to infections or more serious problems. Taking care of your feet is one of the most important things you can do for yourself. HOME CARE INSTRUCTIONS Wear shoes at all times, even in the house. Do not go barefoot. Bare feet are easily injured. Check your feet daily for blisters, cuts, and redness. If you cannot see the bottom of your feet, use a mirror or ask someone for help. Wash your feet with warm water (do not use hot water) and mild soap. Then pat your feet and the areas between your toes until they are completely dry. Do not soak your feet as this can dry your skin. Apply a moisturizing lotion or petroleum jelly (that does not contain alcohol and is unscented) to the skin on your feet and to dry, brittle toenails. Do not apply lotion between your toes. Trim your toenails straight across. Do not dig under them or around the cuticle. File the edges of your nails with an emery board or nail file. Do not cut corns or calluses or try to remove them with medicine. Wear clean socks or stockings every day. Make sure they are not too tight. Do not wear knee-high stockings since they may decrease blood flow to your legs. Wear shoes that fit properly and have enough cushioning. To break in new shoes, wear them for just a few hours a day. This prevents you from injuring your feet. Always look in your shoes before you put them on to be sure there are no objects inside. Do not cross your legs. This may decrease the blood flow to your feet. If you find a minor scrape, cut, or break in the skin on your feet, keep it and the skin around it clean and dry. These areas may be cleansed with mild soap and water. Do not cleanse the area with peroxide, alcohol, or iodine. When you remove an adhesive bandage, be sure not to damage the skin around it. If you have a wound, look at it several times a day to make sure it is healing. Do not use heating pads or hot water bottles. They may burn your skin. If you have lost feeling in your feet or legs, you may not know it is happening until it is too late. Make sure your health care provider performs a complete foot exam at least annually or more often if you have foot problems. Report any cuts, sores, or bruises to your health care provider immediately. SEEK MEDICAL CARE IF: You have an injury that is not healing. You have cuts or breaks in the skin. You have an ingrown nail. You notice redness on your legs or feet. You feel burning or tingling in your legs or feet. You have pain or cramps in your legs and feet. Your legs or feet are numb. Your feet always feel cold. SEEK IMMEDIATE MEDICAL CARE IF: There is increasing redness, swelling, or pain in or around a wound. There is a red line that goes up your leg. Pus is coming from a wound. You develop a fever or as directed by your health care provider. You notice a bad smell coming from an ulcer or wound. Document Released: 05/17/2001 Document Revised: 01/20/2014 Document Reviewed: 10/27/2013 ExitCare Patient Information 2015 [employer]. This information is not intended to replace advice given to you by your health care provider. Make sure you discuss any questions you have with your health care provider. No follow up information was provided. Extracted from: Title: Office Visit Note Author: Jessica Boone DO Date: 03/14/15 Assessment/Plan Anxiety We will increase her sertraline to 50 mg a day. If she experiences any side effects she is to merely break those in half to go back to her normal dose. Ordered: Office Visit Level 4 Est 41257 Diabetes We will get an A1c today, continue care with Dr. Zamarripa. Ordered: Hemoglobin A1c Office Visit Level 4 Est 28975 Essential hypertension (disorder) We will get a BMP today, this appears to be resolved as she is off her lisinopril. Ordered: Basic Metabolic Panel Hypothyroidism (disorder) We'll make adjustments based on laboratory value. Return to clinic in 6 months. Ordered: Office Visit Level 4 Est 51391 TSH with Reflex Free T4 Orders: alendronate, 70 mg 1 tabs, Oral, qWeek, # 13 tabs, 3 Refill(s), Pharmacy: [facility] #[id number], 1 tabs Oral qWeek
--- OUTSIDE RECORDS SUMMARY | 2017-06-13 14:25 | External Medical Summary | Referral Summary ---
:1930 Author Organization [facility] Address [address] [place] [address] [place] [id number] Care Team Providers Name Role Phone Jessica Boone Primary Care Physician Encounter [facility] [id number] Date(s): 03/20/16 - 03/20/16 [facility] [address] [place] [phone] [place] Discharge Diagnosis: Other hyperlipidemia Discharge Diagnosis: Hypothyroidism (disorder) Discharge Diagnosis: Diabetic renal disease (disorder) Discharge Diagnosis: Diabetes Discharge Diagnosis: Encounter for immunization Discharge Diagnosis: Anxiety Discharge Disposition: 01-Home or Self Care Attending Physician: Jessica Boone DO Admitting Physician: Jessica Boone DO Vital Signs Most recent to oldest [Reference Range]: 1 Temperature Tympanic [36.6-38.1 degC] 36.5 degC *LOW* (03/20/16 8:05 AM) Peripheral Pulse Rate [60-100 bpm] 80 bpm (03/20/16 8:05 AM) Respiratory Rate [14-20 br/min] 15 br/min (03/20/16 8:05 AM) Blood Pressure [90-140/60-90 mmHg] 108/60 mmHg (03/20/16 8:05 AM) SpO2 95 % (03/20/16 8:05 AM) Problem List Condition Effective Dates Status [...] qWeek, # 13 tabs, 3 Refill(s), Pharmacy: [facility] # [id number], 1 tabs Oral qWeek Start Date: 03/14/15 Status: OrderedGentle Laxative 5 mg oral delayed release tablet mg tabs, Oral, Daily, mix with a glass a water, 0 Refill(s) Start Date: 11/09/14 Status: Orderedglimepiride 2 mg oral tablet 2 mg 1 tabs, Oral, BID, take 2 in am and 1 in pm, # 180 tabs, 2 Refill(s), Pharmacy: [facility] #[id number], PLEASE NOTE PT. IS TO TAKE TABLET [...] BY MOUTH DAILY, # 90 caps, eRx: [facility] #[id number], TAKE ONE CAPSULE BY MOUTH DAILY Start Date: 03/12/16 Status: OrderedOnglyza 5 mg oral tablet See Instructions, TAKE ONE TABLET BY MOUTH DAILY, # 90 tabs, 1 Refill(s), eRx: [facility] #[id number], TAKE ONE TABLET BY MOUTH DAILY Start Date: 10/28/15 Status: Orderedsertraline 50 mg oral tablet 50 mg 1 tabs, Oral, Daily, # 30 tabs, 3 Refill(s), Pharmacy: [facility] # [id number], 1 tabs Oral Daily Start Date: 12/08/15 Status: Orderedsimvastatin 40 mg oral tablet See Instructions, TAKE ONE-HALF TABLET BY MOUTH DAILY - NEEDS LABS DONE., # 45 tabs, 3 Refill(s), eRx: [facility] #[id number], TAKE ONE-HALF TABLET BY MOUTH DAILY - NEEDS LABS DONE. Start Date: 02/20/16 Status: OrderedSynthroid 75 mcg (0.075 mg) oral tablet See Instructions, TAKE ONE TABLET BY MOUTH EVERY DAY, # 90 tabs, eRx: [facility] #[id number], TAKEONE TABLET BY MOUTH EVERY DAY Start Date: 06/09/15 Status: OrderedTylenol Caplet 325 mg oral tablet 1 tabs, Oral, q4hr, as needed for pain, 0 Refill(s) Start Date: 12/21/13 Status: OrderedVitamin C 500 mg, Oral, Daily, 0 Refill(s) Start Date: 12/28/13 Status: Ordered Results Chemistry Most recent to oldest [Reference Range]: 1 Sodium Lvl [135-144 mEq/L] 143 mEq/L (03/20/16 8:50 AM) Potassium Lvl [3.5-5.2 mEq/L] 4.8 mEq/L (03/20/16 8:50 AM) Chloride [99-111 mEq/L] 107 mEq/L (03/20/16 8:50 AM) CO2 [22-31 mEq/L] 28 mEq/L (03/20/16 8:50 AM) AGAP [3-20] 8 (03/20/16 8:50 AM) BUN [10-20 mg/dL] 37 mg/dL *HI* (03/20/16 8:50 AM) Glucose Lvl [70-99 mg/dL] 184 mg/dL *HI* (03/20/16 8:50 AM) Creatinine Lvl [0.57-1.11 mg/dL] 1.41 mg/dL *HI* (03/20/16 8:50 AM) eGFR [>60 mL/min] 35 mL/min 1 *ABN* (03/20/16 8:50 AM) Calcium Lvl [8.9-10.5 mg/dL] 9.6 mg/dL (03/20/16 8:50 AM) Albumin Lvl [3.4-4.8 gm/dL] 3.8 gm/dL (03/20/16 8:50 AM) Total Protein [6.0-7.6 gm/dL] 5.9 gm/dL *LOW* (03/20/16 8:50 AM) Globulin [1.8-4.0 gm/dL] 2.1 gm/dL (03/20/16 8:50 AM) ALT [0-55 U/L] 19 U/L (03/20/16 8:50 AM) AST [5-34 U/L] 20 U/L (03/20/16 8:50 AM) Alk Phos [40-150 U/L] 61 U/L (03/20/16 8:50 AM) Bili Total [0.2-1.2 mg/dL] 0.4 mg/dL (03/20/16 8:50 AM) 1Result Comment: Multiply eGFR results by [...] Patient Education Author: Jessica Boone DO Date: 03/20/16 Preventive Medicine Fat and Cholesterol Restricted Diet High levels of fat and cholesterol in your blood may lead to various health problems, such as diseases of the heart, blood vessels, gallbladder, liver, and pancreas. Fats are concentrated sources of chrissie rgy that come in various forms. Certain types of fat, including saturated fat, may be harmful in excess. Cholesterol is a substance needed by your body in small amounts. Your body makes all the choleste rol it needs. Excess cholesterol comes from the food you eat. When you have high levels of cholesterol and saturated fat in your blood, health problems can develop because the excess fat and cholesterol will gather along the toro of your blood vessels, causing th em to narrow. Choosing the right foods will help you control your intake of fat and cholesterol. This will help keep the levels of these substances in your blood within normal limits and reduce your risk of disease. WHAT IS MY PLAN? Your health care provider recommends that you: Get no more than % of the total calories in your daily diet from fat. Limit your intake of saturated fat to less than % of your total calories each day. Limit the amount of cholesterol in your diet to less than mg per day. WHAT TYPES OF FAT SHOULD I CHOOSE? Choose healthy fats more often. Choose monounsaturated and polyunsaturated fats, such as olive and canola oil, flaxseeds, walnuts, almonds , and seeds. Eat more omega-3 fats. Good choices include salmon, mackerel, sardines, tuna, flaxseed oil, and ground flaxseeds. Aim to eat fish at least two times a week. Limit saturated fats. Saturated fats are primarily found in animal products, such as meats, butter, and cream. Plant sources of saturated fats include palm oil, palm kernel oil, and coconut oil. Avoid foods with partially hydrogenated oils in them. These contain trans fats. Examples of foods that contain trans fats are stick margarine, some tub margarines, cookies, crackers, and other baked goods. WHAT GENERAL GUIDELINES DO I NEED TO FOLLOW? These guidelines for healthy eating will help you control your intake of fat and cholesterol: Check food labels carefully to identify foods with trans fats or high amounts of saturated fat. Fill one half of your plate with vegetables and green salads. Fill one fourth of your plate with whole grains. Look for the word "whole" as the first word in the ingredient list. Fill one fourth of your plate with lean protein foods. Limit fruit to two servings a day. Choose fruit instead of juice. Eat more foods that contain soluble fiber. Examples of foods that contain this type of fiber are apples, broccoli, carrots, beans, peas, and barley. Aim to get 2030 g of fiber per day. Eat more home-cooked food and less restaurant, buffet, and fast food. Limit or avoid alcohol. Limit foods high in starch and sugar. Limit fried foods. Cook foods using methods other than frying. Baking, boiling, grilling, and broiling are all great options. Lose weight if you are overweight. Losing just 510% of your initial body weight can help your overall health and prevent diseases such as diabetes and heart disease. WHAT FOODS CAN I EAT? Grains Whole grains, such as whole wheat or whole grain breads, crackers, cereals, and pasta. Unsweetened oatmeal, bulgur, barley, quinoa, or brown rice. [place] or whole wheat flour tortillas. Vegetables Fresh or frozen vegetables (raw, steamed, roasted, or grilled). Green salads. Fruits All fresh, canned (in natural juice), or frozen fruits. Meat and Other Protein Products Ground beef (85% or leaner), grass-fed beef, or beef trimmed of fat. Skinless chicken or turkey. Ground chicken or turkey. Pork trimmed of fat. All fish and seafood. Eggs. Dried beans, peas, or lentils. Unsalted nuts or seeds. Unsalted canned or dry beans. Dairy Low-fat dairy products, such as skim or 1% milk, 2% or reduced-fat cheeses, low -fat ricotta or cottage cheese, or plain low-fat yogurt. Fats and Oils Tub margarines without trans fats. Light or reduced-fat mayonnaise and salad dressings. Avocado. [place], canola, sesame, or safflower oils. Natural peanut or almond butter (choose ones without added sugar and oil). The items listed above may not be a complete list of recommended foods or beverages. Contact your dietitian for more options. WHAT FOODS ARE NOT RECOMMENDED? Grains White bread. White pasta. White rice. Cornbread. Bagels, pastries, and croissants. Crackers that contain trans fat. Vegetables White potatoes. [place]. Creamed or fried vegetables. Vegetables in a cheese sauce. Fruits Dried fruits. Canned fruit in light or heavy syrup. Fruit juice. Meat and Other Protein Products Fatty cuts of meat. Ribs, chicken wings, ellis, sausage, bologna, salami, chitterlings, fatback, hot dogs, bratwurst, and packaged luncheon meats. Liver and organ meats. Dairy Whole or 2% milk, cream, gwys-qhy-xcst, and cream cheese. Whole milk cheeses. Whole-fat or sweetened yogurt. Full-fat cheeses. Nondairy creamers and whipped toppings. Processed cheese, cheese spreads, or cheese curds. Sweets and Desserts [place] syrup, sugars, honey, and molasses. Candy. Jam and jelly. Syrup. Sweetened cereals. Cookies, pies, cakes, donuts, muffins, and ice cream. Fats and Oils Butter, stick margarine, lard, shortening, ghee, or ellis fat. Coconut, palm kernel, or palm oils. Beverages Alcohol. Sweetened drinks (such as sodas, lemonade, and fruit drinks or punches ). The items listed above may not be a complete list of foods and beverages to avoid. Contact your dietitian for more information. This information is not intended to replace advice given to you by your health care provider. Make sure you discuss any questions you have with your health care provider. Document Released: 05/20/2006 Document Revised: 06/10/2015 Document Reviewed: 08/18/2014 [employer] Interactive Patient Education 2016 [employer] No follow up information was provided. Extracted from: Title: Office Visit Note Author: eJssica Boone DO Date: 03/20/16 Assessment/Plan Anxiety Continue sertraline, return to clinic in 6 months. Ordered: Office Visit Level 4 Est 80257 Diabetes Continue as per Dr. Zamarripa. Diabetic renal disease (disorder) Continue as per Dr. Wilder. Ordered: Office Visit Level 4 Est 64382 Encounter for immunization Flu shot provided today. Ordered: Office Visit Level 4 Est 17794 Hypothyroidism (disorder) Continue aspirin Dr. Zamarripa. Ordered: Office Visit Level 4 Est 01820 Other hyperlipidemia CMP today, unless otherwise indicated continue statin therapy, return to clinic in 6 months when she'll be due for FLP and CMP. Ordered: Comprehensive Metabolic Panel Office Visit Level 4 Est 71109
--- OUTSIDE RECORDS SUMMARY | 2017-06-13 14:25 | External Medical Summary | Referral Summary ---
:1930 Author Organization [facility] Address [address] [place] [address] [place] [id number] Care Team Providers Name Role Phone Jessica Boone Primary Care Physician Encounter [facility] Date(s): 11/09/14 - 11/09/14 [facility] [address] [place] [address] [place] [phone]- Discharge Diagnosis: Renal disease Discharge Diagnosis: Dyslipidemia [...] Daily, # 30 tabs, 5 Refill(s), Pharmacy: [facility] #[id number] , 1 tabs Oral Daily Start Date: 01/26/14 Status: OrderedFosamax 70 mg oral tablet 70 mg 1 tabs, Oral, qWeek, # 13 tabs, 3 Refill(s), Pharmacy: [facility] # [id number], 1 tabs Oral qWeek Start Date: 03/14/15 Status: OrderedGentle Laxative 5 mg oral delayed release tablet mg tabs, Oral, Daily, mix with a glass a water, 0 Refill(s) Start Date: 11/09/14 Status: Orderedglimepiride 2 mg oral tablet 1 tabs, Oral, BID, # 180 tabs, 2 Refill(s), Pharmacy: [facility] #[id number], PLEASE NOTE PT. IS TO TAKE TABLET [...] DAY, # 90 caps, 2 Refill(s), Pharmacy: [facility] #[id number], TAKE ONE CAPSULE BY MOUTH ONCE A DAY Start Date: 09/13/14 Status: OrderedOnglyza 5 mg oral tablet See Instructions, TAKE ONE TABLET BY MOUTH EVERY DAY, # 90 tabs, 2 Refill(s), Pharmacy: [facility] #[id number], TAKE ONE TABLET BY MOUTH EVERY DAY Start Date: 09/13/14 Status: Orderedsertraline 25 mg oral tablet See Instructions, TAKE ONE TABLET BY MOUTH EVERY DAY, # 90 tabs, 1 Refill(s), eRx: [facility] #[id number], TAKE ONE TABLET BY MOUTH EVERY DAY Start Date: 03/16/15 Status: OrderedSynthroid 75 mcg (0.075 mg) oral tablet See Instructions, TAKE ONE TABLET BY MOUTH EVERY DAY, # 90 tabs, 1 Refill(s), eRx: [facility] #[id number], TAKE ONE TABLET BY MOUTH EVERY DAY [...] # 45 tabs, 2 Refill(s ), Pharmacy: [facility] #[id number], TAKE ONE-HALF TABLET BY MOUTH EVERY DAY [...] MORE INFORMATION National [employer] and [employer] [place]: www.nhlbi.nih.gov/health/hearttruth [place] [employer]: www.heart.org/HEARTORG Document Released: 08/09/2004 Document Revised: 08/11/2012 Document Reviewed: 08/04/2008 [employer] Patient Information 2014 [employer]. No follow up information was provided. Extracted [...]
--- NOTE | 2017-06-13 14:57 | History & Physical Report ---
History of Present Illness Date: 06/13/17 Chief complaint: lightheaded and weak HPI: Pamela Yoon is an 87 year old woman who followed up with Dr. Boone on 06/13/17 for her annual physical and also because she has been feeling weak, lightheaded , and short of breath with activity. These symptoms started about a month ago and had been gradually worsening. She also reports that her balance has been worse over the last month and started using a cane to stabilize herself. She fell at the end of the year while getting into a car, but denies any significant injuries from that. She denies chest pain or syncope but has had some heart fluttering with exertion. She also reports some LLQ pressure at night. She denies nausea or vomiting, black/bloody stools. She denies any changes in her bowel habits. She denies dysuria or hematuria but notes chronic urinary frequency. She tends to bruise and bleed easily. She also reports some recent trouble swallowing. She denies paresthesias, unilateral weakness, fever/ chills, cough/cold symptoms, headaches, or visual changes. She thinks that she has been pale in color. Dr. Boone keisha lab, and Pamela went home. However, she received a phone call that she needed to go back to the hospital for admission - her hgb level was 6.9. In comparison, in December 2016 it was 10.7. Her last colonoscopy was in 2010. She was directly admitted under the hospitalist service for further treatment and evaluation of her symptomatic anemia. Review of Systems All systems PM: 10-point ROS was reviewed, no additional remarkable complaints except - Constitutional Constitutional: Present: as per HPI - EENMT Eyes: Present: requires corrective lenses Balance: Present: as per HPI Nose: Present: as per HPI Mouth/Throat: Present: as per HPI - Cardiovascular Cardiovascular: Present: as per HPI Vascular: Absent: pedal edema - Respiratory Respiratory: Present: as per HPI - Gastrointestinal Gastrointestinal: Present: as per HPI - Genitourinary Genitourinary: Present: as per HPI - Musculoskeletal Musculoskeletal: Present: as per HPI - Integumentary/Breasts Integumentary: Present: as per HPI - Neurological Neurological: Present: as per HPI - Psychiatric Psychiatric: Present: anxiety, depression - Endocrine Endocrine: Present: as per HPI - Hematologic/Lymphatic Hematologic/Lymphatic: Present: as per HPI - Allergic/Immunologic Allergic/Immunologic: Absent: urticaria Past Medical History Type 2 diabetes. Her last hemoglobin A1c was 8.3% in May 2017. Chronic kidney disease stage IV. Anemia of chronic disease. Diabetic peripheral neuropathy. Hypothyroidism. Hyperlipidemia. Anxiety Depression. Surgical History: Colonoscopy 2010. Cataract extraction. Well-healed surgical scar to right hip, the patient cannot recall procedure. Left wrist surgery. Bilateral tubal ligation 1963. Family History: Family History Father Prostate cancer Brother Diabetes Sister Diabetes Paternal Grandmother Diabetes Family History Updates: Father had stroke, heart disease and prostate cancer. Mother had lupus. Siblings with diabetes. - Social History Smoking status: Never smoker Substance use type: does not use Alcohol intake frequency: does not drink (she was) Current occupational status: retired Previous occupational history: [employer] Social history: Primary care physician is Dr. Boone. Business Info Consultant is Dr. Zamarripa. Back Digger Operator is Dr. Wilder. Medications Home Medications Medication Instructions Recorded Confirmed Type Aspirin [Aspir 81] 81 mg PO DAILY #0 03/25/16 06/13/17 History Fish Oil 1 cap PO DAILY 10/24/16 06/13/17 History Mapap ES 500 mg capsule 500 mg PO BID PRN cap 10/24/16 History Ocuvite 1 tab PO DAILY 10/24/16 06/13/17 History Pen [place] 32G X 4MM NOT APPLICABLE 10/24/16 History Prilosec (Omeprazole) 20 mg 20 mg PO DAILY cap 10/24/16 06/13/17 History capsule,delayed release Vitamin C 1 tab PO DAILY 10/24/16 06/13/17 History Zoloft (sertraline) 50 mg tablet 50 mg PO DAILY tab 10/24/16 06/13/17 History alendronate 70 mg tablet 70 mg PO .COMPLEX tab 10/24/16 06/13/17 History saxagliptin 5 mg tablet 5 mg PO DAILY tab 10/24/16 06/13/17 History Amaryl (glimepiride) 2 mg tablet 2 mg PO .COMPLEX 11/06/16 History Zocor (simvastatin) 40 mg tablet See Label Instructions PO .COMPLEX 05/24/1704/20 History 90 Days tab ascorbate calcium 500 mg tablet 500 mg PO DAILY tab 05/24/17 06/13/17 History Allergies Allergy/AdvReac Type Severity Reaction Status Date / Time Sulfa (Sulfonamide Allergy Intermediate RASH Verified 06/13/17 16:01 Antibiotics) citalopram Allergy Unknown Verified 06/13/17 16:01 codeine Allergy Unknown Verified 06/13/17 16:01 Exam - Constitutional Present: no acute distress, well nourished, well developed, thin - Routine HEENT Exam Head: Present: normocephalic Eye: Present: PERRL. Absent: conjunctival icterus, scleral injection, conjunctivae pink (pale) ENT: Present: mucous membranes moist, oropharynx clear, external ear normal ( hearing aids) - Routine Neck Exam Present: supple. Absent: lymphadenopathy - Routine Respiratory Exam Present: CTA bilaterally - Routine Cardiovascular Exam Present: RRR, S1, S2 - Routine Abdominal Exam Present: soft, normoactive bowel sounds, non distended, non tender. Absent: rebound, guarding - Routine Rectal Exam Visual: Present: normal rectal tone. Absent: black stool, bloody stool, michelle blood, tenderness, heme (+) stool Digital: Present: normal inspection - Routine Extremities Exam Present: no edema, pulses intact, normal capillary refill. Absent: calf tenderness - Routine Skin Exam Present: intact, dry, pallor, warm, ecchymosis (small areas of ecchymosis to her forearms. She also has a large area of ecchymosis to her right greater trochanter.) - Routine Neurological Exam Present: alert, oriented X3, CN II-XII intact, moving all extremities, normal speech. Absent: motor deficit, facial asymmetry - Routine Psychiatric Exam Present: normal affect, normal thought process, cooperative Results - Labs CBC & Chem 7: 06/13/17 15:22 06/13/17 15:22 Assessment and Plan (1) Anemia Current visit: Yes Status: Acute Assessment and Plan: Impression Acute symptomatic anemia superimposed on anemia of chronic disease. Type 2 diabetes. Her last hemoglobin A1c was 8.3% in May 2017. Chronic kidney disease stage IV. She sees Dr. William Wilder. Diabetic peripheral neuropathy. Hypothyroidism. Her last TSH was 5.66 in May 2017, at which time Dr. Zamarripa increased her Synthroid dose. Hyperlipidemia. Anxiety and Depression. Dysphagia. Plan Admit, observation status, under the hospitalist service. Repeat labs, including CBC and will also obtain iron studies. Type and crossmatch for 2 units of PRBC. Digital rectal exam done on admission - Hemoccult was negative. Hold ASA. Start IV PPI BID. SCDs for prophylaxis. Patient complained of LLQ pressure though abdominal exam was benign. Check UA. Check EKG due to palpitations. Consult speech therapy due to Pamela's report of dysphagia. Case discussed with RN and attending, Dr. Sunshine. Advanced directives: Pamela's daughter is her DPOA; she has a living will; she requests full code status. 06/13/2017-I reviewed this chart, the patient history, and the SUPERVISOR SHEET MANU[employer]UR[employer]'s/PA's documented findings as above. We discussed and formulated the assessment and plan as above with the additions below.-Dr. Sunshine 5:14 PM Mrs. Yoon is a very pleasant 87-year-old female with history of chronic kidney disease and anemia of chronic disease. She was having shortness of breath with activity for the past 2 weeks. She went to her primary care doctor's office and in workup was found to have a hemoglobin of 6.9. She was admitted to observation status for symptomatic anemia. On arrival here blood work showed hemoglobin of 6. BUN is 40 which is stable. Creatinine is 1.6 which is stable. Blood sugar was 507. She states she might be confused about her diabetes medications. She sees Dr. Zamarripa for diabetes management. She sees Dr. William Wilder for chronic kidney disease. She is not receiving Depo injections to her knowledge. The patient denies any history of gastric ulcers. She denies a history of cancer. She states she does look at her stools and has noticed no bloody stools or black tarry stools. She has no epigastric pain. She has some left lower quadrant pain that she notices at night and has had for about a month and a half. She has not noticed any changes in her bowel movements. She did require transfusions during the time around deliveries of her children but has not required transfusions otherwise. She has not noticed any epistaxis, hematuria or any other abnormal bleeding, but does states she bleeds easily when she checks her blood sugar with a lancet. On exam the patient is alert and oriented and in no acute distress. She is quite pale. Current vitals show a temp of 97, pulse 89, respirations 20, blood pressure 132/70, O2 sat 95% on room air HEENT reveals sclerae to be nonicteric, oropharynx is moist. Neck is supple. Chest is clear to auscultation. Cardiovascular reveals regular rate and rhythm. Abdomen is soft, nondistended, normal bowel sounds. She has some mild tenderness in the left lower quadrant but no organomegaly or masses are appreciated. Extremities are free of clubbing cyanosis or edema. Lab was reviewed. Impression and plan Symptomatic normocytic anemia-acute on chronic. She has history of anemia of chronic disease. Her anemia may be in part related to her chronic kidney disease and she may benefit from EPO. Will check B-12, folate, iron studies. Initial Hemoccult was negative. Will obtain serial hemoglobins. We'll start Protonix 40 mg IV ID empirically Transfuse 2 units of blood now Place 2 IVs Clear liquids tonight. Patient has significant hyperglycemia today and states that she sees Dr. Zamarripa. She also states that she may be confused about her medicines for diabetes. She was given 10 of subcutaneous NovoLog for blood sugar of 500. Will repeat BGM 1 hour after NovoLog given. Will discuss with Dr. Zamarripa. Monitor chronic kidney disease Repeat CBC and basic metabolic profile tomorrow. DVT Prophylaxis: SCD's GI Prophylaxis: Protonix Resuscitation Status: Full Code - Physician Narrative Physician: Henna Ramirez MD Narrative: Date: 06/13/17 Time: 1456 Hospital Course Summary Disclaimer: The visit summary below is not to be considered part of the above Progress Note. Hospital Course: 06/13/17: Admitted to observation status for symptomatic anemia with hgb of 6.0 on admission. She was type and crossmatched and given 2 units PRBC. Hemoccult was negative. ASA and fish oil were held.
[2017-06-13 15:14] VITALS: BMI 20.7
[2017-06-14] MEDS: PANTOPRAZOLE 40 MG INJECTION IVP SCH ×2 (09:14→16:05)
--- NOTE | 2017-06-14 11:39 | Discharge Summary ---
Discharge Information Date of admission: 06/13/17 14:11 Anticipated date of discharge: 06/14/17 Attending Physician: Henna Sunshine MD Primary care physician: Jessica Boone DO Consults: Consulting Provider: Conrad Zamarripa - Discharge Diagnosis (1) Anemia Status: Acute Acute symptomatic anemia superimposed on anemia of chronic disease. Iron deficiency anemia. Type 2 diabetes. Her last hemoglobin A1c was 8.3% in May 2017. Chronic kidney disease stage IV. She sees Dr. William Wilder. Diabetic peripheral neuropathy. Hypothyroidism. Her last TSH was 5.66 in May 2017, at which time Dr. Zamarripa increased her Synthroid dose. Hyperlipidemia. Anxiety and Depression. - Procedures Procedures: 2 units PRBC 06/13/17 IV iron 06/14/17 - Laboratory Labs: 06/14/17 09:54 06/14/17 04:01 History of Present Illness HPI: Pamela Yoon is an 87 year old woman who followed up with Dr. Boone on 06/13/17 for her annual physical and also because she has been feeling weak, lightheaded , and short of breath with activity. These symptoms started about a month ago and had been gradually worsening. She also reports that her balance has been worse over the last month and started using a cane to stabilize herself. She fell at the end of the year while getting into a car, but denies any significant injuries from that. She denies chest pain or syncope but has had some heart fluttering with exertion. She also reports some LLQ pressure at night. She denies nausea or vomiting, black/bloody stools. She denies any changes in her bowel habits. She denies dysuria or hematuria but notes chronic urinary frequency. She tends to bruise and bleed easily. She also reports some recent trouble swallowing. She denies paresthesias, unilateral weakness, fever/ chills, cough/cold symptoms, headaches, or visual changes. She thinks that she has been pale in color. Dr. Boone keisha lab, and Pamela went home. However, she received a phone call that she needed to go back to the hospital for admission - her hgb level was 6.9. In comparison, in December 2016 it was 10.7. Her last colonoscopy was in 2010. She was directly admitted under the hospitalist service for further treatment and evaluation of her symptomatic anemia. Objective Vital signs: Temperature 96.2 F L 06/14/17 09:52 Pulse Rate 74 06/14/17 10:21 Respiratory Rate 16 06/14/17 09:52 Blood Pressure 129/66 06/14/17 10:21 Pulse Oximetry 92 06/14/17 10:21 Height/Weight/BMI: Height 1.68 m Weight 60 kg Body Mass Index 20.7 - Constitutional Present: no acute distress, well nourished, well developed, thin - Routine HEENT Exam Head: Present: normocephalic, atraumatic ENT: Present: mucous membranes moist, oropharynx clear - Routine Respiratory Exam Present: CTA bilaterally - Routine Cardiovascular Exam Present: RRR, S1, S2 - Routine Abdominal Exam Present: soft, normoactive bowel sounds, non distended, non tender - Routine Extremities Exam Present: no edema, pulses intact - Routine Skin Exam Present: intact, dry, warm - Routine Neurological Exam Present: alert, oriented X3, normal speech - Routine Psychiatric Exam Present: normal affect, normal thought process, cooperative Hospital Course This is a general summary of the patient's hospital course. For more details refer to the complete medical record. Hospital course: Pamela Yoon was directly admitted on 06/13/17 because of symptomatic anemia with a hemoglobin of 6.9 in the outpatient setting. On arrival to the hospital, her hemoglobin was 6.0. Hemoccult was negative. She was crossmatched and given 2 units of PRBC. ASA and fish oil were held initially but were resumed on discharge since no obvious source of bleeding was identified. By 06/14/17, her symptoms had resolved. She was no longer dyspneic, lightheaded, weak or dizzy. Iron level came back low: Iron was 13, TIBC 286, percent sat 5. She was given IV iron which she tolerated well. Her creatinine improved from 1.6-1.3. The case was discussed with Dr. Wiledr, her research group director. He felt that she would be a candidate for epo shots, which could be arranged through his office. He would like to see her in a few weeks for follow-up. She also saw Dr. Zamarripa during hospitalization because of hyperglycemia (>500), and he recommended increasing Lantus to 5U. Recommend lab recheck and follow up with Dr. Boone in 1 week. Continue PO iron. Instructions were discussed with Pamela and she voiced an understanding. 06/14/2017-9:40 PM-I reviewed this chart, the patient history, and the [employer]ER[employer]'s/PA 's documented findings as above. We discussed and formulated the assessment and plan as above with the additions below.-Dr. Sunshine The patient was seen this afternoon in her room prior to discharge. She stated she was feeling very well. She had been up walking without any lightheadedness or shortness of breath. She was eating and drinking well. She felt stable for dismissal to home. On exam she is alert and oriented and in no acute distress. Chest is clear to auscultation. Cardiovascular reveals a regular rate and rhythm. Abdomen is soft and nontender. Extremities are free of edema. Hemoglobin has improved nicely after 2 units. Hemoccult was negative. Blood sugar show improved control. Impression and plan Iron deficiency anemia improved post 2 units of blood The patient was given IV iron replacement today. She will follow-up with Dr. William Wilder for possible erythropoietin. Dr. Zamarripa did increase patient's Lantus. He was agreeable with dismissal to home. She will follow-up with Dr. Zamarripa. I did discuss the patient with Dr. Zamarripa today. I did call and talk with Dr. Rogers, the patient's primary care physician and updated her on hospital findings and discharge plans. Time spent with patient: discharge greater than 30 minutes Discharge Plan - Discharge Disposition Discharge Date: 06/14/17 Disposition: Discharged Home, Self-Care *Condition: Stable Reason For Visit (Visit label in EMR): symptomatic anemia - Discharge Medications *Discharge Medications: No Action Aspirin [Aspir 81] 81 mg PO DAILY #0 Pen [place] 32G X 4MM NOT APPLICABLE Zoloft (sertraline) 50 mg tablet 50 mg PO DAILY tab Fish Oil 1 cap PO DAILY Mapap ES 500 mg capsule 500 mg PO BID PRN cap alendronate 70 mg tablet 70 mg PO .COMPLEX tab saxagliptin 5 mg tablet 5 mg PO DAILY tab Vitamin C 1 tab PO DAILY Prilosec (Omeprazole) 20 mg capsule,delayed release 20 mg PO DAILY cap Ocuvite 1 tab PO DAILY ascorbate calcium 500 mg tablet 500 mg PO DAILY tab Amaryl (glimepiride) 2 mg tablet 2 mg PO .COMPLEX Accu-Chek Yumiko Plus test strips See Dose Instructions .ROUTE .MEDSUPPLY # 100 each NS Levemir FlexTouch 100 unit/mL (3 mL) subcutaneous insulin pen 2 unit SUB-Q .QHS #15 ml NS Zocor (simvastatin) 40 mg tablet See Label Instructions PO .COMPLEX 90 Days tab Synthroid 75 mcg tablet 75 mcg PO .COMPLEX #100 tab NS - Discharge Packet/Instructions *Diet: Diabetic diet (carbohydrate consistent) *Activity: No restrictions *Pain Management/Treatment: Resume home medications. *Wound Care: N/A Additional Instructions: Increase Levemir at night from 2 units to 5 units. *Expected Signs/Symptoms: You might be a little tired from your hospital stay. Your shortness of breath, weakness, and balance problems should be much better! *Notify Physician if: Difficulty breathing, chest pain, fever, increasing weakness, confusion, or any new concerns. *During Business Hours Contact: Dr. Boone' office. *After Business Hours Contact: The on-call provider for Dr. Boone. *Pending Lab/Results: No Pending Lab - Referrals/Follow Up *Referrals/Follow Up: Jessica Boone DO [Family Provider] - 1 Week William Wilder MD [Physician] - 3 Weeks (discuss starting epo) Conrad Zamarripa MD [Physician] - (call for appointment) - Patient Handouts Patient Handouts: Anemia (GEN) - Dismissal Complete Discharge Instructions are:: Complete Physician Narrative - Narrative Attestation Narrative: Date: 06/14/17 Time: 9161
--- NOTE | 2017-06-14 13:12 | Pharmacy Consult ---
Pharmacy Consult-Iron - Laboratory Information [facility] 06/13/17 06/13/17 06/14/17 15:22 15:22 04:01 Hgb 6.0 L 8.3 L D Hct 21.0 L 27.5 L D Iron 13 L TIBC 286 % Saturation 5 L 06/14/17 09:54 Hgb 9.4 L D Hct Iron TIBC % Saturation - Consult Information IV IRON CONSULT: Dx: Chronic Anemia: Will give TDI (Total Dose Infusion) over 4 hours. Actual body weight = 58.3kg Hgb Level = 8.3 g/dL Calculated Dosing weight = 58 kg Total dose needed: 1,700 mg (34 mL) Will give test dose of 25mg IV push over 30 seconds. Watch VS q 15 minutes x 1 hr. (watching for anaphylaxis, respiratory distress, hives.) If no reaction will give full dose in NS 500ml TRA 125ml/hr. Watch VS q 1 hr during infusion. Thank you.
--- NOTE | 2017-06-14 15:50 | Consultation ---
DATE OF CONSULT 06/14/2017 REASON FOR CONSULTATION Uncontrolled type 2 diabetes mellitus. HISTORY OF PRESENT ILLNESS The patient is an 87-year-old woman who saw Dr. Jessica Boone on the day of admission for her annual physical with complaints of feeling weak, lightheaded and having some dyspnea with exertion. She was found to be significantly anemic and was sent to the hospital for admission. Her hemoglobin level was 6.9 compared to 10.7 last December. She also was found to have a glucose level over 500. She has been followed for type 2 diabetes mellitus with fair control when last seen in my office in May, taking Amaryl 2 mg q.a.m., 6 mg q. lunch, saxagliptin 5 mg q. a.m. and Levemir 2 units at bedtime. She also has a history of hypothyroidism and had been maintained on 75 mcg of Synthroid Saturday through Saturday with 1-1/2 tablets on Sundays. REVIEW OF SYSTEMS Hoarseness, dysphagia, cough, nocturia x 3 and weakness. ALLERGIES Codeine, citalopram and sulfa drugs. FAMILY HISTORY Hypertension, diabetes. SOCIAL HISTORY The patient has never smoked tobacco and does not drink alcohol. PHYSICAL EXAMINATION VITAL SIGNS: Temperature 98.1, BP 127/65, pulse 82, respirations 16 GENERAL: Well-developed, well-nourished, elderly female in no acute distress. HEENT: Atraumatic, normocephalic. PERRL. NECK: Without thyromegaly or lymphadenopathy. LUNGS: Clear. HEART: Regular rate and rhythm. ABDOMEN: Soft with normal bowel sounds. EXTREMITIES: Without edema. Neurological: Moves all extremities. LABORATORY Glucose was greater than 500 on admission. She was given 10 units of NovoLog with the blood sugar dropping over the next four to five hours to as low as 62 and rising again by 11 p.m. to 214. Fasting glucose was 147. After receiving 2 units of packed red cells her hemoglobin was 9.4 this morning. BUN 30, creatinine 1.3. eGFR 39. ASSESSMENT 1. Type 2 diabetes mellitus, uncontrolled. We should place the patient back on her usual home regimen and adjust from that point. 2. Hypothyroidism. She seems clinically euthyroid. We should continue her previous dose of Synthroid. 3. Dyslipidemia, controlled at home with 40 mg of Zocor daily. 4. Anemia, improving but still with low hemoglobin. 5. Stage III chronic kidney disease. She sees Dr. William Wilder for this. RECOMMENDATIONS Resume Amaryl 2 mg q.a.m., 6 mg q. lunch, saxagliptin 5 mg q. a.m., Levemir 2 units q.h.s., Synthroid 75 mcg Saturday through Saturday and 1-/2 tablets Sundays , and Zocor 40 mg daily. Thank you very much for asking me to assist in caring for this nice woman. I will follow her along with you while she remains in the hospital. MAGDALENA
[2017-06-14 16:04] VITALS: BP 123/68; PULSE 77; RESP 20; TEMP 97.9; O2SAT 92
[~2017-06-14 19:00] MED LIST changes: +--POM--LEVOTHYROXINE 75 MCG TABLET PO SCH; +--POM--SIMVASTATIN 40 MG TABLET PO SCH; -ACET-62 PO; -ALEN70TA48; +ASCORBIC ACID 500 MG PO SCH; -ASPI-557 PO; -CALC-969 PO; +CALCIUM CARBONATE 500 MG PO SCH; +DEXTROSE 50% SYRINGE 50ml (1 AMP) IVP PRN; -FISH1CAP59 PO; -GLIM2TAB3 PO; +GLIMEPIRIDE 1 MG PO SCH; +GLIMEPIRIDE 2 MG PO SCH; +GLUCOSE ORAL GEL 40% 37.5gm PO PRN; -INSU100I4 SQ; +INSULIN ASPART 100unit/ml INJECTION SQ ONE; +INSULIN DETEMIR 100unit/ml INJECTION SQ SCH; +IRON - PHARMACY CONSULT MC ONE; +IRON DEXTRAN COMPLEX 100mg/2ml INJECTION IV ONE; +IRON DEXTRAN IV ONE; -LEVO75TA10; +LEVOTHYROXINE 75 MCG TABLET PO SCH; +MINERAL PO SCH; +MULTI VIT PO SCH; -MV-M1TAB38 PO; +NS 1,000 ML IV SCH; +NS FLUSH BAG 500ml IV PRN; +NS IV ONE; -OMEP20CA10; +PANTOPRAZOLE 40 MG INJECTION IVP SCH; -SAXA5TAB; +SAXAGLIPTIN 5 MG PO SCH; -SERT50TA12; +SERTRALINE 50 MG PO SCH; -SIMV40TA5 PO; +SIMVASTATIN 40 MG TABLET PO SCH
== END | disposition home or self-care (01) ==
LOC: MED
PROVIDERS: ADMIT Internal Medicine; ATTEND Internal Medicine